=== PATIENT | female | born 1990 | race Caucasian/White ===

== ENCOUNTER 2019-12-11 12:50 | Observation (INO) | payer OTHER, SELFPAY ==
[2019-12-11 13:22] VITALS: BP 116/63; PULSE 75
[2019-12-11 13:35] VITALS: BMI 30.8
--- NOTE | 2019-12-11 13:35 | OBADM ---
This patient, Kenzie Wynne, admitted to OB Post room 116 for observation. Patient/family oriented to hospital policies and general routines including ID bracelet, bed and alarms, visiting hours, pain management, procedures, bathroom and other care routines, personal items, smoking policy, room service/diet, call light, and visiting hours. Patient/Family are encouraged to report perceived risks to care and to ask questions if they do not understand what they are told or what they should do.
[2019-12-11 13:58] LABS: Add Urine Microscopic? NO; Appearance Urine Clear (Clear); Bilirubin Urine Negative (Negative); Blood Urine Negative (Negative); Color Urine Yellow (Yellow); Glucose Urine UA Negative (Negative); Ketones Urine Negative (Negative); Leukocyte Esterase Ur Negative LEU/UL (Negative); Nitrate Urine Negative (Negative); Protein Urine Negative (Negative); Specific Grav Ur 1.015 (1.001-1.035); Urobilinogen Urine Negative mg/dL (<2.0)
--- NOTE | 2020-01-11 18:04 | PM.OBTRLD ---
OB - Triage/Final Diagnosis Evaluation Laboratory results: Laboratory Tests 12/11/19 13:45 Urine Color Yellow Urine Appearance Clear Urine pH 5.0 Ur Specific [place] 1.015 Urine Protein Negative Urine Glucose (UA) Negative Urine Ketones Negative Ur Blood (Man) Negative Urine Nitrate Negative Urine Bilirubin Negative Urine Urobilinogen Negative Leukocyte Esterase Rfl Negative Final Diagnosis (1) Spotting: Code(s): N92.0 - Excessive and frequent menstruation with regular cycle Status: Acute
== END 2019-12-11 15:35 | disposition home or self-care (01) ==
PROVIDERS: Admitting Provider Obstetrics & Gynecology; Visit Provider Obstetrics & Gynecology
DX: O26.852 Spotting complicating pregnancy, second trimester (principal); Z3A.21 21 weeks gestation of pregnancy
CPT/HCPCS: 81003; G0378; G0379

== ENCOUNTER 2020-03-14 21:48 | Observation (INO) | payer OTHER, SELFPAY ==
[2020-03-14 22:20] VITALS: BP 112/64; PULSE 101
[2020-03-14 22:30] VITALS: TEMP 36.9
[2020-03-14 23:28] LABS: Add Urine Microscopic? YES; Appearance Urine Cloudy (Clear); Bacteria Urine 1+ /hpf; Bilirubin Urine Negative (Negative); Blood Urine Negative (Negative); Color Urine Yellow (Yellow); Glucose Urine UA 1+ mg/dL (Negative); Ketones Urine Negative (Negative); Leukocyte Esterase Ur Negative LEU/UL (Negative); Mucus Urine Rare /lpf; Nitrate Urine Negative (Negative); Protein Urine Negative (Negative); Specific Grav Ur 1.012 (1.001-1.035); Squamous Epithelial Cell Urine Rare /hpf (Few); Urobilinogen Urine Negative mg/dL (<2.0); WBC Urine 0-3 /hpf
[2020-03-15] VITALS (11 sets, daily range): BP systolic 108; BP diastolic 57; PULSE 98–127; O2SAT 98–100; BMI 33.5
[2020-03-15] MEDS: TERBUTALINE SULFATE 1 MG/ML VIAL 0.25 MG SUB-Q
--- NOTE | 2020-03-15 01:01 | OBADM ---
This patient, Kenzie Wynne, admitted to the OB room Labor/Delivery/Recovery 106 for observation. Patient/family oriented to hospital policies and general routines including ID bracelet, bed and alarms, visiting hours, pain management, procedures, bathroom and other care routines, personal items, smoking policy, room service/diet, and visiting hours. Patient/Family are encouraged to report perceived risks to care and to ask questions if they do not understand what they are told or what they should do.
--- NOTE | 2020-03-16 15:03 | PM.OBTRLD ---
OB - Triage/Final Diagnosis Visit Information Date of evaluation: 03/15/20 Reason for evaluation: threatened labor Evaluation Laboratory results: Laboratory Tests 03/14/20 23:01 Urine Color Yellow Urine Appearance Cloudy H Urine pH 6.0 Ur Specific [place] 1.012 Urine Protein Negative Urine Glucose (UA) 1+ H Urine Ketones Negative Ur Blood (Man) Negative Urine Nitrate Negative Urine Bilirubin Negative Urine Urobilinogen Negative Leukocyte Esterase Rfl Negative Urine RBC 3-5 H Urine WBC 0-3 Ur Squamous Epith Cells Rare Urine Bacteria 1+ H Hyaline Casts 1-2 Urine Mucus Rare Final Diagnosis (1) Spotting: Code(s): N92.0 - Excessive and frequent menstruation with regular cycle Status: Acute
== END 2020-03-15 01:15 | disposition home or self-care (01) ==
PROVIDERS: Admitting Provider Obstetrics & Gynecology; PCP Internal Medicine; Visit Provider Student in an Organized Health Care Education/Training Program
DX: O26.853 Spotting complicating pregnancy, third trimester (principal); Z3A.34 34 weeks gestation of pregnancy
CPT/HCPCS: 81001; G0378; G0379; J3105

== ENCOUNTER 2020-03-18 17:37 | Observation (INO) | payer OTHER, SELFPAY ==
[2020-03-18] VITALS (15 sets, daily range): BP systolic 97–123; BP diastolic 55–71; PULSE 88–121; TEMP 37.4; BMI 33.5
[2020-03-18] MEDS: LACTATED RINGERS 1,000 ML 999 ML IV CONT (19:11)
[2020-03-18] MEDS: NIFEdipine 10 MG CAPSULE PO (19:12)
[2020-03-18] MEDS: BETAMETHASONE SOD PHOS/ACETATE 30 MG/5 ML VIAL 12 MG IM (20:56)
--- NOTE | 2020-03-28 07:02 | PM.OBTRLD ---
OB - Triage/Final Diagnosis Visit Information Date of evaluation: 03/18/20 Reason for evaluation: threatened labor
== END 2020-03-18 21:50 | disposition home or self-care (01) ==
PROVIDERS: Admitting Provider Student in an Organized Health Care Education/Training Program; PCP Internal Medicine; Visit Provider Student in an Organized Health Care Education/Training Program
DX: O47.03 False labor before 37 completed weeks of gestation, third trimester (principal); Z3A.35 35 weeks gestation of pregnancy
CPT/HCPCS: 96360; 96372; A9270; G0378; G0379; J0702; J7120

== ENCOUNTER 2020-03-19 20:35 | Outpatient (CLI) | payer OTHER, SELFPAY ==
[2020-03-19] MEDS: BETAMETHASONE SOD PHOS/ACETATE 30 MG/5 ML VIAL 12 MG IM (21:04)
== END 2020-03-19 21:10 | disposition home or self-care (01) ==
LOC: ANHOBOP 20:43
PROVIDERS: Family Provider Obstetrics & Gynecology; PCP Internal Medicine; Visit Provider Obstetrics & Gynecology
DX: O36.8990 Maternal care for other specified fetal problems, unspecified trimester, not applicable or unspecified (principal); Z3A.00 Weeks of gestation of pregnancy not specified
CPT/HCPCS: 96372; J0702

== ENCOUNTER 2020-04-17 18:52 | Inpatient (IN) | payer OTHER, SELFPAY ==
[2020-04-17] VITALS (10 sets, daily range): BP systolic 106–121; BP diastolic 60–82; PULSE 80–127; BMI 35.4
--- NOTE | 2020-04-17 19:22 | LDADM ---
This patient, Kenzie Wynne, was admitted to Labor/Delivery/Recovery 109 on 04/17/20 at 18:52. Plans for labor, pain management and were discussed with patient. Patient/family oriented to hospital policies and general routines including ID bracelet, bed and alarms, visiting hours, pain management, procedures, bathroom and other care routines, personal items, smoking policy, room service/diet and guest tray routines, security routines, and visiting hours. Patient/Family are encouraged to report perceived risks to care and to ask questions if they do not understand what they are told or what they should do. See OBIX for further documentation.
[2020-04-17 19:24] LABS: Basophils Percent Auto 0.3 % (0.2-1.2); Eosinophils Percent Auto 0.3 % (0-4.4); Hematocrit 36.1 % (37.0-47.0); Hemoglobin 12.4 g/dL (12.0-15.0); Lymphocytes Absolute Auto 1.72 K/mm3 (0.9-3.2); Lymphocytes Percent Auto 17.8 % (18.3-44.2); Mean Corpuscular HGB Conc 34.3 g/dl (32-36); Mean Platelet Volume 10.5 fl (7.4-10.4); Monocytes Absolute Auto 0.7 K/mm3 (0.1-0.6); Monocytes Percent Auto 7.2 % (2.6-8.5); Neutrophils Absolute Auto 7.1 K/mm3 (1.3-6.7); Neutrophils Percent Auto 73.4 % (45.5-73.1); Platelet Count Result 229 k/mm3 (150-375); Red Blood Count 3.88 M/mm3 (4.2-5.4); White Blood Count 9.7 K/mm3 (4.5-10.0)
[2020-04-17] MEDS: DINOPROSTONE 10 MG VAG INSERT VAGINAL (19:31)
[2020-04-17] MEDS: ZOLPIDEM TARTRATE 5 MG TABLET PO (23:35)
[2020-04-18] VITALS (206 sets, daily range): BP systolic 97–138; BP diastolic 49–92; PULSE 72–128; TEMP 37–38.4; O2SAT 79–100
--- NOTE | 2020-04-18 02:30 | P.PNAN_ITS ---
Anes - Eval Pre Procedure Procedure: labor epidural Date/Time: 04/18/20 02:30 Surgeon: filomena tenorio Pre Op Diagnosis: Induction of Labor Patient Data Age: 30 Gender: F Height: 1.57 m Weight: 88 kg Last Vital Signs Temp 37.2 C 04/18/20 02:08 Pulse 74 04/18/20 02:08 BP 109/61 04/18/20 02:08 Allergies Allergy/AdvReac Type Severity Reaction Status Date / Time amoxicillin Allergy Mild Verified 01/14/19 08:58 Penicillins Allergy Unknown Verified 06/16/14 14:16 Home Medications Medication Instructions Recorded Confirmed Type PNV cmb#95-ferrous fumarate-FA 1 tablet PO DAILY 03/15/20 03/30/20 History [] omeprazole 40 mg PO DAILY 03/30/20 03/30/20 History Laboratory Tests 04/17/20 04/17/20 04/17/20 19:17 19:17 19:17 WBC 9.7 K/mm3 K/mm3 (4.5-10.0) RBC 3.88 M/mm3 L M/mm3 (4.2-5.4) Hgb 12.4 g/dL g/dL (12.0-15.0) Hct 36.1 % L % (37.0-47.0) MCV 93.0 fl fl (80-100) MCH 32.0 pg pg (26-34) MCHC 34.3 g/dl g/dl (32-36) RDW 13.0 % % (11.5-14.5) Plt Count 229 k/mm3 k/mm3 (150-375) MPV 10.5 fl H fl (7.4-10.4) Immature Gran % (Auto) 1.0 % H % (0-0.5) Neut % (Auto) 73.4 % H % (45.5-73.1) Lymph % (Auto) 17.8 % L % (18.3-44.2) [place] % (Auto) 7.2 % % (2.6-8.5) Eos % (Auto) 0.3 % % (0-4.4) Baso % (Auto) 0.3 % % (0.2-1.2) Lymph # (Auto) 1.72 K/mm3 K/mm3 (0.9-3.2) [place] # (Auto) 0.7 K/mm3 H K/mm3 (0.1-0.6) Eos # (Auto) 0.0 K/mm3 K/mm3 (0-0.3) Baso # (Auto) 0.0 K/mm3 K/mm3 (0.0-0.1) Abs Immat Gran (auto) 0.10 K/mm3 H K/mm3 (0.00-0.031) Absolute Neuts (auto) 7.1 K/mm3 H K/mm3 (1.3-6.7) Absolute Nucleated RBC 0.0 K/mm3 K/mm3 (0.0-0.012) Nucleated RBC % 0.0 % % (0.0-0.2) RPR Pending Blood Type A Negative Antibody Screen Negative Patient hx anesthesia problems: post op nausea/vomiting Family hx anesthesia problems: none PMFSH Social History Social History Smoking status: Never smoker Alcohol intake: current Substance use: never Gender identity (if verbalized by the patient): Female Spiritual care concerns: No Exam Day of Procedure 04/18/20 02:30
--- NOTE | 2020-04-18 06:17 | PM.IMHP ---
H&P: HPI History of Present Illness Chief complaint: Induction of Labor Narrative: Kenzie Wynne is a 30 year old female whose last menstrual reason EDC is 04/21/2020, confirmed by 5 week ultrasound presenting at 40 weeks gestation for induction labor. She has had mildly elevated blood pressures. She is negative for group B strep. has been uncomplicated thus far. Review of Systems Review of Systems: All systems reviewed & are unremarkable except as noted in HPI and below PMFSH Family History Family History Mother Patient's mother is in good health Father Patient's father is in good health Sibling Patient's sister is in good health Patient's brother is in good health Grandparent Carcinoma of colon Family history of lung cancer Social History Social History Smoking status: Never smoker Alcohol intake: current Substance use: never Gender identity (if verbalized by the patient): Female Spiritual care concerns: No Meds Home Medications and Allergies Home Medications Medication Instructions Recorded Confirmed Type PNV cmb#95-ferrous fumarate-FA 1 tablet PO DAILY 03/15/20 03/30/20 History [] omeprazole 40 mg PO DAILY 03/30/20 03/30/20 History Allergies Allergy/AdvReac Type Severity Reaction Status Date / Time amoxicillin Allergy Mild Verified 01/14/19 08:58 Penicillins Allergy Unknown Verified 06/16/14 14:16 Vital Signs Vital Signs - 24 hr 04/17/20 19:21 04/17/20 19:30 04/17/20 19:45 Temperature Pulse Rate 88 127 H 85 Blood Pressure 107/60 111/82 106/65 04/17/20 20:00 04/17/20 20:15 04/17/20 20:30 Temperature Pulse Rate 91 81 80 Blood Pressure 119/72 112/68 121/72 04/17/20 20:45 04/17/20 21:00 04/17/20 21:15 Temperature Pulse Rate 80 86 93 Blood Pressure 111/67 121/69 109/67 04/17/20 21:30 04/18/20 02:08 04/18/20 06:16 Temperature 98.9 F 98.8 F Pulse Rate 94 74 Blood Pressure 106/60 109/61 Exam Const: General: no acute distress Eyes: General: appearance normal, both eyes and all related structures Neck: Neck: supple and no JVD Thyroid: thyroid normal Resp: Effort & Inspection: normal respiratory effort Auscultation: clear to auscultation bilaterally Cardio: Rate: regular rate Rhythm: regular rhythm GI: Inspection: normal to inspection ( Gravid soft uterus) and non-distended GI Palp: Yes Soft to palpation, No Tenderness to palpation present (GI) and No Guarding due to palpation present (GI) Auscultation: normal bowel sounds : General: Yes bladder normal to palpation External Female Exam: normal external appearance Speculum Exam - Vagina: normal vaginal discharge and No vaginal bleeding Speculum Exam - Cervix: nontender Bimanual exam- vagina & uterus: bladder normal to palpation OB/external & speculum: Cervical os open ( cervix 1/50%/ -2. AROM clear. FHTs were reassuring); No vaginal bleeding Skin: General skin exam: no rashes or lesions noted Extrem: General: normal to inspection and no edema Psych: Mental Status: mental status grossly normal Affect: normal affect H&P: Results Labs Labs: Short CBC 04/17/20 Range/Units 19:17 WBC 9.7 (4.5-10.0) K/mm3 Hgb 12.4 (12.0-15.0) g/dL Hct 36.1 L (37.0-47.0) % Plt Count 229 (150-375) k/mm3 Assessment and Plan Additional Plan impression: Term with mildly elevated blood pressures Plan: Medical induction of labor. Spontaneous vaginal delivery is expected. She has an epidural candidate
[2020-04-18 07:25] LABS: Rapid Plasma Reagin Non-Reactive (NonReactive)
[2020-04-18] MEDS: LACTATED RINGERS 1,000 ML 125 ML IV CONT ×4 (09:05→23:06)
[2020-04-18] MEDS: OXYTOCIN 30 UNITS/NS 500 ML 30 UNITS/500 ML BAG 6 UNITS IV CONT (09:06)
--- NOTE | 2020-04-18 11:50 | PM.OBPNVD ---
OB - PN: Subj Subjective Date/time seen: 04/18/20 11:50 Interval history: cx unchanged arom clear fhts ok iupc placed OB - PN: Obj Data Labs CBC & Chem 7: 04/17/20 19:17 Labs: Laboratory Results - last 24 hr 04/17/20 04/17/20 04/17/20 19:17 19:17 19:17 WBC 9.7 RBC 3.88 L Hgb 12.4 Hct 36.1 L MCV 93.0 MCH 32.0 MCHC 34.3 RDW 13.0 Plt Count 229 MPV 10.5 H Immature Gran % (Auto) 1.0 H Neut % (Auto) 73.4 H Lymph % (Auto) 17.8 L [place] % (Auto) 7.2 Eos % (Auto) 0.3 Baso % (Auto) 0.3 Lymph # (Auto) 1.72 [place] # (Auto) 0.7 H Eos # (Auto) 0.0 Baso # (Auto) 0.0 Abs Immat Gran (auto) 0.10 H Absolute Neuts (auto) 7.1 H Absolute Nucleated RBC 0.0 Nucleated RBC % 0.0 RPR Non-reactive Blood Type A Negative Antibody Screen Negative OB - PN A/P Time Spent With Patient Time: Total time spent is greater than 50% in coordination of care (as documented) at patient's floor/unit and/or counseling patient:
[2020-04-18] MEDS: ACETAMINOPHEN 500 MG TABLET 1000 MG PO ×2 (16:30→23:15)
--- NOTE | 2020-04-18 16:32 | P.PNOB_ITS ---
OB - PN: Subj Subjective Date/time seen: 04/18/20 16:32 Interval history: cx fhts ok iupc replaced epidural in OB - PN: Obj Data Labs CBC & Chem 7: 04/17/20 19:17 Labs: Laboratory Results - last 24 hr 04/17/20 04/17/20 04/17/20 19:17 19:17 19:17 WBC 9.7 RBC 3.88 L Hgb 12.4 Hct 36.1 L MCV 93.0 MCH 32.0 MCHC 34.3 RDW 13.0 Plt Count 229 MPV 10.5 H Immature Gran % (Auto) 1.0 H Neut % (Auto) 73.4 H Lymph % (Auto) 17.8 L [place] % (Auto) 7.2 Eos % (Auto) 0.3 Baso % (Auto) 0.3 Lymph # (Auto) 1.72 [place] # (Auto) 0.7 H Eos # (Auto) 0.0 Baso # (Auto) 0.0 Abs Immat Gran (auto) 0.10 H Absolute Neuts (auto) 7.1 H Absolute Nucleated RBC 0.0 Nucleated RBC % 0.0 RPR Non-reactive Blood Type A Negative Antibody Screen Negative OB - PN A/P Time Spent With Patient Time: Total time spent is greater than 50% in coordination of care (as documented) at patient's floor/unit and/or counseling patient:
[2020-04-18] MEDS: ONDANSETRON INJ 4 MG/2 ML VIAL IV PUSH (17:13)
[2020-04-18] MEDS: CALCIUM CARBONATE (TUMS) 500 MG (200 MG ELEMENTAL) 400 MG PO (21:14)
[2020-04-19] VITALS (62 sets, daily range): BP systolic 64–132; BP diastolic 35–81; PULSE 89–168; RESP 16; TEMP 36.6–38.4; O2SAT 94–100
--- NOTE | 2020-04-19 03:25 | P.PCNOB_ITS ---
OB - Delivery Note Procedure Delivery date: 04/19/20 Intrapartal events: None Induction method: AROM Delivery augmentation: pitocin Delivery monitor: external FHT Route of delivery: Episiotomy description: None Laceration description: None Specimen: No Estimated blood loss (mL): 457 Anesthesia type: Epidural Disposition: floor [place] Baby Date of : 04/19/20 Time of : 03:08 Weeks of gestation at delivery: 39 gender: Female Weight (pounds): 8 Weight (ounces): 9 presentation: vertex position: Right Occiput Anterior cord vessel description: 3 Vessels score one minute: 8 score five minutes: 9
[2020-04-19] MEDS: OXYTOCIN 30 UNITS/NS 500 ML 30 UNITS/500 ML BAG 125 UNITS IV CONT (03:35)
[2020-04-19] MEDS: IBUPROFEN 600 MG TABLET PO ×3 (04:12→19:26)
[2020-04-19] MEDS: BENZOCAINE 20% AER SPR (*SP) 56 GM CAN 1 SPRAY TOPICAL (04:13)
[2020-04-19] MEDS: WITCH HAZEL 40 PADS 1 PAD TOPICAL (04:13)
[2020-04-19] MEDS: LACTATED RINGERS 1,000 ML 125 ML IV CONT (04:32)
[2020-04-19 07:09] LABS: Hematocrit 26.7 % (37.0-47.0); Hemoglobin 9.1 g/dL (12.0-15.0)
[2020-04-19] MEDS: POLYSACCHARIDE IRON COMPLEX 150 MG CAPSULE PO ×2 (07:28→16:31)
[2020-04-19] MEDS: MULTIVIT/MIN/PREN/FOL AC/IRON TABLET 1 TAB PO (07:28)
[2020-04-19] MEDS: DOCUSATE SODIUM 100 MG CAPSULE PO ×2 (07:29→16:31)
[2020-04-19] MEDS: ACETAMINOPHEN 325 MG TABLET 650 MG PO ×3 (07:29→22:05)
[2020-04-19] MEDS: LANOLIN (LANSINOH) 7.5 GM CREAM 1 APPLIC TOPICAL (07:31)
--- NOTE | 2020-04-19 07:40 | OBPPTRN ---
Patient transferred to post room # 277 per wheelchair. Support person present. Oriented to unit, room, information board, rooming in, admission packet and security measures. Patient verbalizes understanding.
--- NOTE | 2020-04-19 08:45 | PC.NURSE ---
Mother called out for assist with feeding. Mother reports infant eagerly fed for first feeding, now sleepy. Reviewed infant feeding cues, frequencies, duration of feedings, feeding elimination flow sheet, and signs of adequate intake. Demonstrated stimulation techniques to wake for feeding. Assisted with infant to breast. Reviewed positioning/alignment in cross cradle, holding breast in U hold and guided asymmetrical latch on. Discussed rational for each. Several attempts before infant was able to latch correctly. Left breast is more firm and nipple does not protrude as far as right. Infant nursed eagerly, with steady draws and occasional swallowing noted. Reviewed signs of a correct latch, effective nursing and suck swallow ratio. Mother continued to have slight tenderness. Demonstrated how to adjust latch more deeply while feeding. Within 1-2 minutes, had drawn nipple in deeply and mother reports no discomfort. Infant was able to maintain latch without discomfort to mother. Nipple care reviewed. Discussed nipple shield use if infant continues to have issues with latch to left breast. Instructed mother to call out for RN assistance if she is unable to latch for feeding or she has discomfort with nursing. Instructed feeding should be initiated three hours from start of last feeding or if feeding cues are noted before. Mother voiced understanding of information shared.
[2020-04-20] VITALS (12 sets, daily range): BP systolic 105–120; BP diastolic 54–75; PULSE 78–101; RESP 14–18; TEMP 36.5–37.1; O2SAT 97–100
[2020-04-20 05:47] LABS: Hematocrit 19.9 % (37.0-47.0); Hemoglobin 6.7 g/dL (12.0-15.0)
--- NOTE | 2020-04-20 06:17 | P.PNOB_ITS ---
OB - PN: Subj Subjective Date/time seen: 04/20/20 06:17 Interval history: cx fhts ok iupc replaced epidural in Patient comments: no complaints and pain well controlled [place] baby status: doing well and nursing well OB - PN: Obj Data Labs CBC & Chem 7: 04/20/20 05:35 Labs: Laboratory Results - last 24 hr 04/19/20 04/20/20 06:55 05:35 Hgb 9.1 L D 6.7 L* Hct 26.7 L 19.9 L* OB - PN A/P Plan day: 1 Plan: routine care Comments: start iron Time Spent With Patient Time: Total time spent is greater than 50% in coordination of care (as documented) at patient's floor/unit and/or counseling patient: Time with patient: less than 15 minutes Review of Systems Review of Systems: All systems reviewed & are unremarkable except as noted in HPI and below Exam Const: General: no acute distress Eyes: General: appearance normal, both eyes and all related structures Neck: Neck: supple and no JVD Thyroid: thyroid normal Resp: Effort & Inspection: normal respiratory effort Auscultation: clear to auscultation bilaterally Cardio: Rate: regular rate Rhythm: regular rhythm GI: Inspection: non-distended GI Palp: Yes Soft to palpation, No Tenderness to palpation present (GI) and No Guarding due to palpation present (GI) Auscultation: normal bowel sounds : General: Yes bladder normal to palpation External Female Exam: normal external appearance Speculum Exam - Vagina: normal vaginal discharge and No vaginal bleeding Speculum Exam - Cervix: nontender Bimanual exam- vagina & uterus: bladder normal to palpation and No Cervical tenderness present OB/external & speculum: No vaginal bleeding Skin: General skin exam: no rashes or lesions noted Extrem: General: normal to inspection and no edema Psych: Mental Status: mental status grossly normal Affect: normal affect
--- NOTE | 2020-04-20 07:19 | WPDANLDPN2 ---
Anes-Prog Note L&D Date/Time: 04/20/20 07:19 Comfortable throughout: labor and delivery Neuraxial method: epidural Epidural/Spinal procedure site: clean & non-tender Neuro status: Neuro function grossly intact. Cardiovascular status: normal Respiratory status: normal Airway patency: baseline Mental status: baseline Post-Op hydration status: normal Vital Signs: Last Vital Signs Temp 36.7 C 04/19/20 19:15 Pulse 108 H 04/19/20 19:15 Resp 16 04/19/20 19:15 BP 115/63 04/19/20 19:15 Pulse Ox 99 04/19/20 19:15 Post-procedural complaints: none Patient feedback: Patient satisfied with anesthetic care.
[2020-04-20] MEDS: BENZOCAINE 20% AER SPR (*SP) 56 GM CAN 1 SPRAY TOPICAL (08:20)
[2020-04-20] MEDS: WITCH HAZEL 40 PADS 1 PAD TOPICAL (08:20)
[2020-04-20] MEDS: IBUPROFEN 600 MG TABLET PO ×3 (08:21→20:13)
[2020-04-20] MEDS: DOCUSATE SODIUM 100 MG CAPSULE PO ×2 (08:22→16:15)
[2020-04-20] MEDS: ACETAMINOPHEN 325 MG TABLET 650 MG PO ×2 (08:22→16:16)
[2020-04-20] MEDS: POLYSACCHARIDE IRON COMPLEX 150 MG CAPSULE PO ×2 (08:22→16:15)
[2020-04-20] MEDS: MULTIVIT/MIN/PREN/FOL AC/IRON TABLET 1 TAB PO (08:22)
--- NOTE | 2020-04-20 13:00 | PC.NURSE ---
Mother called out for assist with feeding due to difficulties with latch and pain with feeding. Mother reports infant frenulum had been released last evening. She continues to pain with latch and during entire feeding, reporting nipples are sore and feel like they are burning Assisted with infant to breast. Reviewed positioning/alignment in cross cradle, holding breast in U hold and guided asymmetrical latch on. Discussed rational for each. Several attempts before was able to latch correctly. Mother reports less discomfort than previous latch, reporting this is tolerable. Mother would like to imitate pumping and supplementation. nursed eagerly with steady draws and occasional swallowing for short bursts followed with pausing and sleeping. Reviewed signs of a correct latch, effective nursing and suck swallow ratio would slip to shallow latch with pausing. Demonstrated how to adjust latch more deeply while feeding. Nipple care reviewed. Feeding plan is to put infant to breast each feeding for 15 minutes if she is able to obtain a deep latch, followed with supplementation and will then pump.
--- NOTE | 2020-04-20 13:30 | PC.NURSE ---
Breast pump provided due to mother's wishes. Instructions given on breast pump care and usage, pumping schedule, nipple care, and collection and storage of breast milk. Encouraged [id number], breast massage and manual expression to stimulate supply. Assessed patient for correct flange size, placement and draw. Patient verbalizes and demonstrates understanding of instructions.
[2020-04-21] MEDS: IBUPROFEN 600 MG TABLET PO ×2 (02:30→11:51)
--- NOTE | 2020-04-21 03:45 | PC.NURSE ---
04/21/20 0000. unable to chart in [facility]. unit verified by myself and Thu Mackenzie RN prior to transfusion. IV of Normal Saline infusing well in right ac. 0000 120/74 P-96 O2 100 R-16 T 98.0 Start transfusion 0015 116/72 P-98 O2 100 R-16 0030 112/70 P-95 O2 99% R-16 0100 117/77 P- 97 O2 100% R-18 T-98.4 0115 114/63 P- 91 O2 99% R-16 T-98.6 0130 116/66 P-97 O2 99% R-18 0200 100/62 P-74 0230 118/78 P-92 O2 99% R-18 T 98.3 0300 103/59 P-91 O2 98% R18 0315 112/69 P-91 O2 99% R 18 T 98.4 End transfusion.
--- NOTE | 2020-04-21 06:57 | PM.OBPNVD ---
OB - PN: Subj Subjective Date/time seen: 04/21/20 06:57 Interval history: cx fhts ok iupc replaced epidural in Patient comments: no complaints and pain well controlled [place] baby status: doing well and nursing well OB - PN: Obj Data Labs CBC & Chem 7: 04/20/20 05:35 Labs: Laboratory Results - last 24 hr 04/17/20 04/17/20 18:54 19:17 Blood Type A Negative A Negative Antibody Screen Negative Negative Crossmatch See Detail See Detail OB - PN A/P Plan day: 2 Plan: routine care, discharge home and follow up 6 weeks Time Spent With Patient Time: Total time spent is greater than 50% in coordination of care (as documented) at patient's floor/unit and/or counseling patient: Time with patient: less than 15 minutes Review of Systems Review of Systems: All systems reviewed & are unremarkable except as noted in HPI and below Exam Const: General: no acute distress Eyes: General: appearance normal, both eyes and all related structures Neck: Neck: supple and no JVD Thyroid: thyroid normal Resp: Effort & Inspection: normal respiratory effort Auscultation: clear to auscultation bilaterally Cardio: Rate: regular rate Rhythm: regular rhythm GI: Inspection: non-distended GI Palp: Yes Soft to palpation, No Tenderness to palpation present (GI) and No Guarding due to palpation present (GI) Auscultation: normal bowel sounds : General: Yes bladder normal to palpation External Female Exam: normal external appearance Speculum Exam - Vagina: normal vaginal discharge and No vaginal bleeding Speculum Exam - Cervix: nontender Bimanual exam- vagina & uterus: bladder normal to palpation and No Cervical tenderness present OB/external & speculum: No vaginal bleeding Skin: General skin exam: no rashes or lesions noted Extrem: General: normal to inspection and no edema Psych: Mental Status: mental status grossly normal Affect: normal affect
--- NOTE | 2020-04-21 06:58 | PM.DS ---
DS: Admitting Diagnosis Admitting Diagnosis Admitting Diagnosis: term iup DS: Summary Time Spent with Patient Time attestation: Total time spent providing and/or coordinating discharge services: Exam Const: General: no acute distress Eyes: General: appearance normal, both eyes and all related structures Neck: Neck: supple and no JVD Thyroid: thyroid normal Resp: Effort & Inspection: normal respiratory effort Auscultation: clear to auscultation bilaterally Cardio: Rate: regular rate Rhythm: regular rhythm GI: Inspection: non-distended GI Palp: Yes Soft to palpation, No Tenderness to palpation present (GI) and No Guarding due to palpation present (GI) Auscultation: normal bowel sounds : General: Yes bladder normal to palpation External Female Exam: normal external appearance Speculum Exam - Vagina: normal vaginal discharge and No vaginal bleeding Speculum Exam - Cervix: nontender Bimanual exam- vagina & uterus: bladder normal to palpation and No Cervical tenderness present OB/external & speculum: No vaginal bleeding Skin: General skin exam: no rashes or lesions noted Extrem: General: normal to inspection and no edema Psych: Mental Status: mental status grossly normal Affect: normal affect DS: Data Data Completed and Pending Labs on day of discharge: Labs from last 24 hours 04/17/20 04/17/20 19:17 18:54 Blood Type A Negative A Negative Antibody Screen Negative Negative Crossmatch See Detail See Detail Discharge Plan Discharge Attending physician on discharge: Ramon Schuler Discharging Clinician: Ramon Schuler Patient Disposition: Home, Self-Care Activity: may shower, no straining, may drive after 2 weeks and pelvic rest Diet: heart healthy Wound Care Instructions: follow printed instructions Patient Instructions: Antibiotic Form Stand Alone Forms: General Discharge Information Follow-up/Referrals: Ramon Schuler MD [Physician] - Discharge Medications: Continued PNV cmb#95-ferrous fumarate-FA [] 28 mg iron- 800 mcg Tablet 1 tablet PO DAILY RF: 0 omeprazole 40 mg Capsule,Delayed Release(Dr/Ec) 40 mg PO DAILY RF: 0 Date of admission: 04/17/20 18:52 Primary Care Provider: Sourav Mujica Admitting Provider: Ramon Schuler Attending physician on admission: Ramon Schuler
[2020-04-21] MEDS: MULTIVIT/MIN/PREN/FOL AC/IRON TABLET 1 TAB PO (07:29)
[2020-04-21] MEDS: BENZOCAINE 20% AER SPR (*SP) 56 GM CAN 1 SPRAY TOPICAL ×2 (07:29→11:49)
[2020-04-21] MEDS: WITCH HAZEL 40 PADS 1 PAD TOPICAL ×2 (07:29→11:49)
[2020-04-21] MEDS: DOCUSATE SODIUM 100 MG CAPSULE PO (07:29)
[2020-04-21] MEDS: POLYSACCHARIDE IRON COMPLEX 150 MG CAPSULE PO (07:29)
[2020-04-21 08:00] VITALS: BP 119/56; PULSE 81; RESP 18; TEMP 36.7
--- NOTE | 2020-04-21 09:00 | PC.NURSE ---
Patient viewed the discharge video Mother & Baby Care, The First Two Weeks . Patient was given the opportunity and encouraged to ask questions. Patient verbalized understanding of information shared and has been given the mother/baby guide for home reference.
[2020-04-21 09:11] LABS: Hematocrit 26.8 % (37.0-47.0); Hemoglobin 9.2 g/dL (12.0-15.0)
--- NOTE | 2020-04-21 12:45 | PC.NURSE ---
Self care and infant care discharge instructions given to pt. including follow up visit date and time. Pt. verbalized understanding. No questions or concerns verbalized. Very pleasant and cooperative. at side.
[2020-04-22 08:37] VITALS: BP 116/65; PULSE 73; RESP 20; TEMP 36.2
== END 2020-04-21 13:50 | disposition home or self-care (01) | DRG 806 ==
LOC: ANHLDR 04-18 15:01 → ANHOB2 04-19 06:59
PROVIDERS: Student in an Organized Health Care Education/Training Program; Admitting Provider Obstetrics & Gynecology; PCP Internal Medicine; Visit Provider Obstetrics & Gynecology
DX: O99.89 Other specified diseases and conditions complicating pregnancy, childbirth and the puerperium (principal); O75.2 Pyrexia during labor, not elsewhere classified; Z37.0 Single live birth; Z3A.39 39 weeks gestation of pregnancy; R03.0 Elevated blood-pressure reading, without diagnosis of hypertension; O70.0 First degree perineal laceration during delivery
CPT/HCPCS: 36415; 36430; 85014; 85018; 85025; 86592; 86850; 86900; 86901; 86920; 86923; A9270; J0690; J2405; J2590; J2795; J7030; J7120; P9016

== ENCOUNTER 2020-04-28 03:16 | Day surgery (SDC) | payer OTHER, SELFPAY ==
--- NOTE | 2020-04-27 14:10 | PM.IMHP ---
H&P: HPI History of Present Illness Chief complaint: Post Bleeding Narrative: Kenzie Wynne is a 30 year old female 1 para 1 had recent delivery complaining of vaginal bleeding. Ultrasound shows clots possible placental tissue. Risks and benefits of dilatation curettage reviewed in detail. She had all questions answered and asked to proceed Review of Systems Review of Systems: All systems reviewed & are unremarkable except as noted in HPI and below PMFSH Family History Family History Mother Patient's mother is in good health Father Patient's father is in good health Sibling Patient's sister is in good health Patient's brother is in good health Grandparent Carcinoma of colon Family history of lung cancer Social History Social History Smoking status: Never smoker Alcohol intake: current Substance use: never Gender identity (if verbalized by the patient): Female Spiritual care concerns: No Meds Home Medications and Allergies Home Medications Medication Instructions Recorded Confirmed Type PNV cmb#95-ferrous fumarate-FA 1 tablet PO DAILY 03/15/20 03/30/20 History [] omeprazole 40 mg PO DAILY 03/30/20 03/30/20 History Allergies Allergy/AdvReac Type Severity Reaction Status Date / Time amoxicillin Allergy Mild Hives Verified 04/27/20 14:14 Penicillins Allergy Unknown Hives Verified 04/27/20 14:14 Exam Const: General: no acute distress Eyes: General: appearance normal, both eyes and all related structures Neck: Neck: supple and no JVD Thyroid: thyroid normal Resp: Effort & Inspection: normal respiratory effort Auscultation: clear to auscultation bilaterally Cardio: Rate: regular rate Rhythm: regular rhythm GI: Inspection: non-distended GI Palp: Yes Soft to palpation, No Tenderness to palpation present (GI) and No Guarding due to palpation present (GI) Auscultation: normal bowel sounds : General: Yes bladder normal to palpation External Female Exam: normal appearance of the urethra Speculum Exam - Vagina: normal appearance of the vagina and vaginal bleeding Speculum Exam - Cervix: Cervical os open Bimanual exam- vagina & uterus: boggy Skin: General skin exam: no rashes or lesions noted Extrem: General: normal to inspection and no edema Psych: Mental Status: mental status grossly normal Affect: normal affect Assessment and Plan Additional Plan impression: bleeding Plan: Suction dilatation and curettage
[2020-04-27 14:13] VITALS: BMI 30.2
--- NOTE | 2020-04-28 06:20 | WPDHPUPDATE1 ---
History and Physical Update Update Date/Time: 04/28/20 06:20 History and Physical has been reviewed, including an updated exam of the patient. There are NO changes in the patient's condition. Risks, benefits, and alternatives have been discussed and questions answered. Patient agrees to proceed with procedure.
[2020-04-28] MEDS: LACTATED RINGERS 1,000 ML 30 ML IV CONT (12:29)
[2020-04-28 12:35] LABS: Hematocrit 35.5 % (37.0-47.0); Hemoglobin 11.9 g/dL (12.0-15.0)
[2020-04-28 12:41] VITALS: BP 116/68; PULSE 63; RESP 16; TEMP 36.6; O2SAT 100
--- NOTE | 2020-04-28 12:51 | WPDANESEPPF ---
Anes - Initial Pre Proc Eval Procedure: Operation Date: 04/28/20 14:00 Proposed Procedures p Suction Dilation And Curettage - Ramon Schuler MD Date/Time: 04/28/20 12:51 Surgeon: Ramon Schuler MD Pre Op Diagnosis: Post Bleeding Patient Data Age: 30 Gender: F Height: 5 ft 2 in Weight: 73.2 kg Last Vital Signs Temp 36.6 C 04/28/20 12:41 Pulse 63 04/28/20 12:41 Resp 16 04/28/20 12:41 BP 116/68 04/28/20 12:41 Pulse Ox 100 04/28/20 12:41 Allergies Allergy/AdvReac Type Severity Reaction Status Date / Time amoxicillin Allergy Mild Hives Verified 04/28/20 12:04 Penicillins Allergy Unknown Hives Verified 04/28/20 12:04 Home Medications Medication Instructions Recorded Confirmed Type PNV cmb#95-ferrous fumarate-FA 1 tablet PO DAILY 03/15/20 04/28/20 History [] ibuprofen 600 mg PO Q6H PRN 04/27/20 04/28/20 History hydrocodone-acetaminophen [Lorraine] 1 tablet PO Q4H PRN #20 tablet 04/28/20 Rx Laboratory Tests 04/28/20 12:28 Hgb 11.9 g/dL L g/dL (12.0-15.0) Hct 35.5 % L % (37.0-47.0) Patient hx anesthesia problems: post op nausea/vomiting Family hx anesthesia problems: none PMFSH Family History Family History Mother Patient's mother is in good health Father Patient's father is in good health Sibling Patient's sister is in good health Patient's brother is in good health Grandparent Carcinoma of colon Family history of lung cancer Social History Social History Smoking status: Never smoker Alcohol intake: current Drinks per week: 5 Substance use: never Gender identity (if verbalized by the patient): Female Spiritual care concerns: No Anes - Eval Final PreProcedure Day of Procedure 04/28/20 12:51 Patient weight: overweight Heart: regular rate and rhythm Lungs: clear to auscultation Airway: Mallampati scale class II Neurological: alert and oriented Last oral intake: >/= 8 hours ASA classification: II Emergent: no Anesthetic plan: proceed Anesthesia type and monitoring: general GIVS and standard monitoring Informed Consent: The patient's anesthetic plan and its attendant risks and benefits were discussed with the patient/family/POA. Questions were solicited and answers provided to the satisfaction of the patient/family/POA.
[2020-04-28] MEDS: KETOROLAC 30 MG/ML VIAL (*BKC) IV PUSH (13:16)
[2020-04-28] MEDS: METHYLERGONOVINE MALEATE 0.2 MG/ML VIAL IM (13:16)
--- NOTE | 2020-04-28 13:17 | PM.PROC ---
Procedure Note - Detailed Date of procedure: 04/28/20 Pre-op diagnosis: Post Bleeding Surgeon: Ramon Schuler MD postop diagnosis: bleeding Procedure: Suction dilatation curettage Anesthesia: IV sedation and local EBL: 25cc Findings: Uterus sounded to 12cm. Thick irregular endometrial tissue. Locations description of procedure: Patient was prepped draped in the sterile fashion placed in dorsal lithotomy position. Under excellent IV sedation weighted speculum placed in posterior fornix vagina. Anterior lip of the cervix grasped with a ring forceps. Uterus sounded to 12cm. Serial dilatation fragmented dilators performed to size 12. The 10. Suction curette was passed in a moderate amount of clot and possible placental tissue was removed. When a good grating sound was heard the returned the procedure was terminated. All sponge, needle, instrument counts were correct. There were no immediate complications.
[2020-04-28 13:21] VITALS: BP 114/71; PULSE 68; RESP 21; O2SAT 100
[2020-04-28 13:50] VITALS: BP 108/67; PULSE 49; RESP 16
[2020-04-28 14:20] VITALS: BP 110/62; PULSE 49; RESP 16
--- NOTE | 2020-04-28 16:24 | SUR.PHASEII ---
1415 - pt getting dressed. golf ball size clot noted on melody-pad. dr. clemens called and aware of clot and bleeding. pt okayed to send home.
== END 2020-04-28 14:30 | disposition home or self-care (01) ==
PROVIDERS: PCP Internal Medicine; Visit Provider Obstetrics & Gynecology
PROC: (CPT 59160; principal; 2020-04-28 14:00)
DX: O72.2 Delayed and secondary postpartum hemorrhage (principal)
CPT/HCPCS: 59160; 36415; 85014; 85018; 88305; A9270; J1885; J2210; J2250; J2704; J3010; J7120

== ENCOUNTER 2020-06-08 10:20 | Outpatient (CLI) | payer OTHER, SELFPAY ==
[2020-06-08 11:02] LABS: Hematocrit 39.4 % (37.0-47.0); Hemoglobin 12.9 g/dL (12.0-15.0)
== END 2020-06-08 10:21 | disposition home or self-care (01) ==
PROVIDERS: PCP Internal Medicine; Visit Provider Obstetrics & Gynecology
DX: N93.9 Abnormal uterine and vaginal bleeding, unspecified (principal)
CPT/HCPCS: 36415; 85014; 85018

== ENCOUNTER 2020-07-30 18:59 | Emergency (ER) | payer OTHER, SELFPAY ==
--- NOTE | ~2020-07-30 | XR_ITS ---
XR chest 2V DATE: 07/30/2020 19:30 INDICATION: Middle and left-sided chest pain for weeks. Shortness of breath. TECHNIQUE: PA and lateral views COMPARISON: 06/23/2019 PA chest FINDINGS: Normal heart size. No hilar or mediastinal enlargement. No pulmonary infiltrate or consolid ation, pleural effusion or pulmonary vascular congestion or pneumothorax. Included skeletal structure s are unremarkable. IMPRESSION: No active cardiopulmonary disease Reviewed, dictated and finalized at location A.
--- NOTE | ~2020-07-30 | CT_ITS ---
EXAMINATION: CTA chest PE protocol DATE: 07/30/2020 21:25 INDICATION: Left-sided chest pain. Elevated d-dimer. TECHNIQUE: Computed tomography angiography (CTA) of the chest was performed with 100 mL Omnipaque-350 intravenous contrast timed to evaluate the pulmonary arteries. Coronal maximum intensity projection 3D-reconstructions were created by the technologist. Automated exposure control and iterative reconst ruction technique were employed. Exam dose: 310.59 mGy-cm total exam DLP. COMPARISON: 07/30/2022 view chest FINDINGS: There is diagnostic contrast enhancement of the pulmonary syndrome evidence of pulmonary em bolism. No thoracic aortic aneurysm or dissection. No hilar or mediastinal mass lesion or lymphadenopathy. Normal heart size. No pericardial or pleural effusion. No pulmonary infiltrate or consolidation or pulmonary mass lesion. The adrenal glands are of normal morphology. Included upper abdominal structures are unremarkable. Included skeletal structures are unremarkable. IMPRESSION: Normal examination; no evidence of pulmonary embolism Reviewed, dictated and finalized at Location [facility]. Reviewed, dictated and finalized at location A.
[2020-07-30 19:00] VITALS: BP 127/93; PULSE 89; RESP 20; TEMP 36.7; O2SAT 100
--- NOTE | 2020-07-30 19:00 | ECG_ITS ---
Measurements Intervals [place] Rate: 115 P: 41 ME: 161 QRS: 172 QRSD: 98 T: 3 QT: 336 QTc: 466 Interpretive Statements SINUS TACHYCARDIA RIGHT AXIS DEVIATION CANNOT RULE OUT SEPTAL INFARCT, AGE INDETERMINATE BORDERLINE ST-T WAVE ABNORMALITY- ANT/INF LEADS BASELINE ARTIFACT- I, II, AVR, AVL, AVF ABNORMAL ECG Electronically Signed On 07-30-2020 20:42:10 CDT by Charli Lozano D.O.
[2020-07-30 19:11] VITALS: PULSE 87
[2020-07-30 19:21] LABS: Basophils Percent Auto 0.5 % (0.2-1.2); Eosinophils Percent Auto 0.2 % (0-4.4); Hematocrit 37.2 % (37.0-47.0); Hemoglobin 12.5 g/dL (12.0-15.0); Immature Granulocyte Absolute 0.02 K/mm3 (0.00-0.031); Immature Granulocyte Percent A 0.2 % (0-0.5); Lymphocytes Absolute Auto 3.17 K/mm3 (0.9-3.2); Lymphocytes Percent Auto 36.1 % (18.3-44.2); Mean Corpuscular HGB Conc 33.6 g/dl (32-36); Mean Corpuscular Hemoglobin 30.7 pg (26-34); Mean Corpuscular Volume 91.4 fl (80-100); Mean Platelet Volume 9.8 fl (7.4-10.4); Monocytes Absolute Auto 0.8 K/mm3 (0.1-0.6); Monocytes Percent Auto 9.2 % (2.6-8.5); Neutrophils Absolute Auto 4.7 K/mm3 (1.3-6.7); Neutrophils Percent Auto 53.8 % (45.5-73.1); Platelet Count Result 331 k/mm3 (150-375); Red Blood Count 4.07 M/mm3 (4.2-5.4); Red Cell Distribution Width 12.5 % (11.5-14.5); White Blood Count 8.8 K/mm3 (4.5-10.0)
[2020-07-30 19:30] LABS: INR 0.9; Partial Thromboplastin Time 24.4 SECONDS (22.3-36.8); Prothrombin Time 11.9 Seconds (11.1-14.7)
[2020-07-30 19:31] LABS: Anion Gap 7 mmol/L (8-16); Blood Urea Nitrogen 12 mg/dL (7-17); Calcium 8.8 mg/dL (8.4-10.2); Carbon Dioxide 25 mmol/L (22-30); Chloride 106 mmol/L (98-107); Estimated Glomerular Filt Rate > 60; Glucose 92 mg/dL (65-105); Potassium 3.4 mmol/L (3.4-5.0); Sodium 138 mmol/L (137-145)
[2020-07-30 19:39] VITALS: O2SAT 100
[2020-07-30 19:43] LABS: Troponin I < 0.012 ng/mL (0.000-0.034)
[2020-07-30] MEDS: KETOROLAC 30 MG/ML VIAL (*BKC) IV PUSH (20:02)
--- NOTE | 2020-07-30 20:23 | PC.NURSE ---
Called lab to add on d dimer
--- NOTE | 2020-07-30 20:26 | PC.NURSE ---
lab staff made aware of EDP added D-Dimer to initial labs.
[2020-07-30 20:30] VITALS: BP 131/81; PULSE 68; PULSE 72; RESP 16; RESP 21; O2SAT 100; O2SAT 99
[2020-07-30 20:42] LABS: D Dimer 0.71 ug/mL (<0.48)
--- NOTE | 2020-07-30 20:50 | ED.CHESTPAIN ---
HPI - Chest Pain General Chief Complaint: Chest Pain Stated Complaint: chest pain Time Seen by Provider: 07/30/20 19:31 History of Present Illness HPI narrative: Patient is a 30-year-old female who presents the ER with chest pain. Began last night. Is been recurrent throughout the day where she is getting recurrent sharp twinges of pain to the left side of the chest behind her breast and towards the midline. It is also associated with intermittent numbness going down her left arm which alarmed her. No modifying factors. No alleviating factors. No fevers or chills or sweats. Patient is and recently returned to work. She is not breast-feeding. 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 Related Data Home Medications Medication Instructions Recorded Confirmed norgestrel-ethinyl estradiol 1 tablet PO DAILY 07/30/20 07/30/20 [Reuben (28)] Allergies Allergy/AdvReac Type Severity Reaction Status Date / Time amoxicillin Allergy Mild Hives Verified 07/30/20 18:59 Penicillins Allergy Unknown Hives Verified 07/30/20 18:59 Review of Systems Review of Systems: All systems reviewed & are unremarkable except as noted in HPI and below Constitutional: Constitutional: Denies chills, Denies fatigue and Denies fever(s) ENT: Denies nasal congestion and Denies sore throat Cardiovascular: Cardiovascular: Reports chest pain, Denies rapid heart rate and Reports radiating jaw, neck or arm pain Respiratory: Respiratory: Denies cough, Denies dyspnea and Denies wheezing Gastrointestinal: Gastrointestinal: Denies abdominal pain, Denies nausea and Denies vomiting Musculoskeletal: Comments: No lower extremity edema PMFSH Family History Family History Mother Patient's mother is in good health Father Patient's father is in good health Sibling Patient's sister is in good health Patient's brother is in good health Grandparent Carcinoma of colon Family history of lung cancer Social History Social History Smoking status: Never smoker Alcohol intake: current Drinks per week: 5 Substance use: never Gender identity (if verbalized by the patient): Female Spiritual care concerns: No Exam Narrative: Exam Narrative: GENERAL: Well-appearing, well-nourished, and in no acute distress. HEAD: Normocephalic, atraumatic. ENT: Mucous membranes moist. NECK: No reproducible tenderness in the neck. CHEST: Clear to auscultation. No respiratory distress. HEART: Regular rate and rhythm. Normal peripheral pulses. ABDOMEN: Soft, nontender, nondistended. EXTREMITIES: Normal range of motion. No edema. NEURO: Alert and oriented x3. PSYCH: Normal mood and affect. Course Course Emergency Course: Unremarkable evaluation. Negative troponin, positive D-dimer but no PE on CTA. Recommend anti-inflammatory therapy and follow-up with PCP. Vital Signs Vital signs: Vital Signs Temperature 98.0 F 07/30/20 19:00 Pulse Rate 89 07/30/20 19:00 Respiratory Rate 20 07/30/20 19:00 Blood Pressure 127/93 H 07/30/20 19:00 Pulse Oximetry 100 07/30/20 19:00 Temperature 98.0 F 07/30/20 19:00 Pulse Rate 72 07/30/20 20:30 Respiratory Rate 21 H 07/30/20 20:30 Blood Pressure 131/81 07/30/20 20:30 Pulse Oximetry 99 07/30/20 20:30 MDM - Chest Pain Lab Data Result diagrams: 07/30/20 19:10 07/30/20 19:10 Labs: Lab Results 07/30/20 07/30/20 07/30/20 Range/Units 19:10 19:10 19:10 WBC 8.8 (4.5-10.0) K/mm3 RBC 4.07 L (4.2-5.4) M/mm3 Hgb 12.5 (12.0-15.0) g/dL Hct 37.2 (37.0-47.0) % MCV 91.4 (80-100) fl MCH 30.7 (26-34) pg MCHC 33.6 (32-36) g/dl RDW 12.5 (11.5-14.5) % Plt Count 331 (150-375) k/mm3 MPV 9.8 (7.4-10.4) fl Immature Gran % (Auto) 0.2 (0-0.5) % Neut % (Auto) 5
[2020-07-30 21:53] VITALS: BP 125/72; PULSE 66; RESP 16; O2SAT 100
== END 2020-07-30 22:10 | disposition home or self-care (01) ==
PROVIDERS: Emergency Provider Emergency Medicine; PCP Internal Medicine
DX: R07.89 Other chest pain (principal); M54.12 Radiculopathy, cervical region; R00.0 Tachycardia, unspecified; R94.31 Abnormal electrocardiogram [ECG] [EKG]
CPT/HCPCS: 36415; 71046; 71275; 80048; 81025; 84484; 85025; 85380; 85610; 85730; 93005; 96374; 99284; J1885; Q9967

== ENCOUNTER 2021-06-21 08:38 | Outpatient (CLI) | payer OTHER, SELFPAY ==
[2021-06-21 08:57] LABS: Basophils Percent Auto 0.7 % (0.2-1.2); Eosinophils Percent Auto 0.5 % (0-4.4); Hematocrit 40.1 % (37.0-47.0); Hemoglobin 13.5 g/dL (12.0-15.0); Immature Granulocyte Absolute 0.01 K/mm3 (0.00-0.031); Immature Granulocyte Percent A 0.2 % (0-0.5); Lymphocytes Absolute Auto 1.85 K/mm3 (0.9-3.2); Lymphocytes Percent Auto 32.2 % (18.3-44.2); Mean Corpuscular HGB Conc 33.7 g/dl (32-36); Mean Corpuscular Hemoglobin 32.1 pg (26-34); Mean Corpuscular Volume 95.2 fl (80-100); Mean Platelet Volume 9.7 fl (7.4-10.4); Monocytes Absolute Auto 0.4 K/mm3 (0.1-0.6); Monocytes Percent Auto 7.5 % (2.6-8.5); Neutrophils Absolute Auto 3.4 K/mm3 (1.3-6.7); Neutrophils Percent Auto 58.9 % (45.5-73.1); Platelet Count Result 249 k/mm3 (150-375); Red Blood Count 4.21 M/mm3 (4.2-5.4); Red Cell Distribution Width 12.1 % (11.5-14.5); White Blood Count 5.7 K/mm3 (4.5-10.0)
[2021-06-21 09:21] LABS: Alanine Aminotransferase 24 U/L (4-35); Albumin Level 4.2 g/dL (3.5-5.1); Alkaline Phosphatase 51 U/L (38-126); Anion Gap 6 mmol/L (8-16); Aspartate Amino Transferase 25 U/L (14-36); Bilirubin,Total 0.2 mg/dL (0.2-1.3); Blood Urea Nitrogen 11 mg/dL (7-17); Calcium 9.1 mg/dL (8.4-10.2); Carbon Dioxide 24 mmol/L (22-30); Chloride 108 mmol/L (98-107); Cholesterol 178 mg/dL (0-200); Estimated Glomerular Filt Rate > 60; Glucose 102 mg/dL (65-110); HDL Direct 63 mg/dL; Potassium 4.4 mmol/L (3.4-5.0); Sodium 138 mmol/L (137-145); Triglycerides 62 mg/dL (<150)
[2021-06-21 09:31] LABS: LDL Cholesterol Direct 95 mg/dL
[2021-06-21 10:06] LABS: Vitamin D 25 Hydroxy 36.9 ng/mL
== END 2021-06-21 08:39 | disposition home or self-care (01) ==
PROVIDERS: PCP Internal Medicine; Visit Provider Internal Medicine
DX: Z13.21 Encounter for screening for nutritional disorder (principal); Z00.00 Encounter for general adult medical examination without abnormal findings
CPT/HCPCS: 36415; 80053; 80061; 82306; 85025

== ENCOUNTER → 2021-07-06 14:25 | Outpatient (CLI) | payer OTHER, SELFPAY ==
--- NOTE | ~2021-07-06 | US_ITS ---
US axilla LT DATE: 07/06/2021 14:43 INDICATION: Left axillary lump TECHNIQUE: Real-time imaging and color flow imaging of the left axillary soft tissues COMPARISON: None FINDINGS: A benign appearing 1.28 x 5 x 6.4 mm lymph node is noted in the left axilla, with uniform t hickness and echogenicity of the cortex. No suspicious mass or shadowing is detected. IMPRESSION: BI-RADS Category 2: Benign Reviewed, dictated and finalized at Location [facility]. Reviewed, dictated and finalized at location A. IMPRESSION: BI-RADS Category 2: Benign
== END ==
PROVIDERS: Visit Provider Obstetrics & Gynecology
DX: N63.32 Unspecified lump in axillary tail of the left breast (principal)
CPT/HCPCS: 76882

== ENCOUNTER → 2021-07-20 08:33 | Outpatient (CLI) | payer OTHER, SELFPAY ==
--- NOTE | ~2021-07-20 | US_ITS ---
EXAMINATION: US breast LT limited HISTORY: Palpable lump at the 6:00 location of the breast and pain of the outer breast TECHNIQUE: Limited left breast ultrasound was performed. COMPARISON: 02/25/2013 FINDINGS: A 1.1 x 0.9 cm oval, circumscribed, parallel, hypoechoic mass with posterior acoustic enhan cement and no internal vascularity is present at the 6:00 location 2 cm from the nipple corresponding to the palpable abnormality of concern. This has decreased in size since the prior examination. No s onographic correlate is identified for the patient's reported left breast pain. IMPRESSION: 1. Left breast mass with decrease in size corresponding to the palpable abnormality of concern, consi stent with a benign finding. 2. No specific sonographic correlate is identified for the patient's left breast pain. Further evalua tion at this time should be based on clinical assessment. Continued follow-up physical examination is recommended. BI-RADS Category 2: Benign finding(s). Reviewed, dictated and finalized at location A. IMPRESSION: 1. Left breast mass with decrease in size corresponding to the palpable abnorma lity of concern, consistent with a benign finding. 2. No specific sonographic correlate is identified for the patient's left breas t pain. Further evaluation at this time should be based on clinical assessment. Continued follow-up physical examination is recommended. BI-RADS Category 2: Benign finding(s).
== END ==
PROVIDERS: Visit Provider Obstetrics & Gynecology
DX: N63.20 Unspecified lump in the left breast, unspecified quadrant (principal)
CPT/HCPCS: 76642

== ENCOUNTER 2021-08-13 08:02 | Emergency (ER) | payer OTHER, SELFPAY ==
[2021-08-13 08:12] VITALS: BP 128/66; PULSE 98; RESP 16; TEMP 37.3; O2SAT 100
--- NOTE | 2021-08-13 08:18 | ED.URI ---
HPI - URI/Sore Throat General Stated Complaint: Sore Throat Time Seen by Provider: 08/13/21 08:03 Source: patient and RN notes reviewed History of Present Illness HPI Narrative: Patient is a 31-year-old female who presents the urgent care with complaints of a sore throat and left eye irritation. Patient states that she had a sore throat on Friday and developed a mild cough with sinus congestion over the last couple days. Patient states she did run a fever one time which was resolved with Tylenol. Patient states her daughter was diagnosed with RSV last week and she assumed she had RSV . Patient has been taking Tylenol, Robitussin and Sudafed. States that she woke up with matting and draining to the left eye 2 days ago. States that her daughter was also diagnosed with pinkeye. Currently denies of fever, nausea, vomiting. No other acute complaints. No acute distress noted. Patient aware of the plan of care. Some parts of this dictation were generated by voice recognition software and may contain typographical and/or grammatical inaccuracies. Related Data Allergies Allergy/AdvReac Type Severity Reaction Status Date / Time amoxicillin Allergy Mild Hives Verified 06/15/21 14:49 Penicillins Allergy Unknown Hives Verified 06/15/21 14:49 Review of Systems Review of Systems: CONSTITUTIONAL: Denies fever, chills, or sweats. EYES: Reports of redness, matting and drainage to the left eye ENT: Reports of postnasal drainage, sinus congestion, sore throat CARDIOVASCULAR: Denies chest pain, palpitations, or edema. RESPIRATORY: Reports a mild nonproductive cough without dyspnea GASTROINTESTINAL: Denies abdominal pain, nausea, vomiting, or diarrhea. GENITOURINARY: Denies dysuria or hematuria. SKIN: Denies rash or itching. MUSCULOSKELETAL: Denies back pain, joint pain, or myalgia. NEUROLOGIC: Denies headache, numbness, or weakness. All other systems reviewed are negative, except as documented in HPI. [facility] Past Medical History Medical History (Updated 08/13/21 @ 08:29 by MATTHIAS Sloan) Anxiety disorder, unspecified Family History Family History Mother Patient's mother is in good health Father Patient's father is in good health Sibling Patient's sister is in good health Patient's brother is in good health Grandparent Carcinoma of colon Family history of lung cancer Social History Social History Smoking status: Never smoker Alcohol intake: current Drinks per week: 5 Substance use: never Gender identity (if verbalized by the patient): Female Spiritual care concerns: No Comments At the time of my signature, I reviewed and agree with the nursing past medical, surgical, social, and family history. There is no relevant family history pertinent to the patient complaint. Exam Narrative: GENERAL: This is a well-nourished, well-developed patient, in no apparent distress. HEAD: normocephalic, atraumatic. EYES: PERRL. Sclera clear/white. Vision is grossly intact. Mild injected conjunctiva to the left with yellow matting and clear drainage EARS: External ears normal, auditory canals clear and without drainage, TMs normal without perforation. Hearing grossly intact. NOSE: External nose normal with no obvious nasal discharge, nares without redness, no rhinorrhea. THROAT: Mucous membranes moist, moderate erythema noted to posterior pharynx with moderate postnasal drainage NECK: Neck supple CARDIOVASCULAR: Regular rate and rhythm without murmurs, gallops, or rubs. RESPIRATORY: Clear to auscultation. Breath sounds equal bilaterally. No wheezes, rales, or rhonchi. SKIN: warm, intact with no suspicious lesions or rash, good texture and turgor. NEURO: awake, alert, and oriented to person, place and time. There were no obvious focal neurologic abnormalities. EXTREMITIES: No clubbing, cyanosis, or edema. Course
--- NOTE | 2021-08-13 08:56 | PC.NURSE ---
1200 pt not seen or discharged by nurse
== END 2021-08-13 08:30 | disposition home or self-care (01) ==
PROVIDERS: Emergency Provider Nurse Practitioner Family; PCP Internal Medicine
DX: J02.9 Acute pharyngitis, unspecified (principal); H10.9 Unspecified conjunctivitis
CPT/HCPCS: 87081; 87880; 99213; G0463

== ENCOUNTER 2022-01-28 10:02 | Emergency (ER) | payer OTHER, SELFPAY ==
--- NOTE | 2022-01-28 10:09 | ED.URI ---
HPI - URI/Sore Throat General Chief Complaint: Upper Respiratory Infection Stated Complaint: CONGESTION/SORE THROAT Time Seen by Provider: 01/28/22 10:18 Source: patient, RN notes reviewed and old records reviewed Mode of arrival: ambulatory Limitations: no limitations History of Present Illness HPI Narrative: 31 year old female who presents to [facility] with complaints of having sinus congestion, sinus drainage, sore throat and some headache discomfort for the past 2 weeks. Patient reports that she called her [employer] doctor and was told to try Flonase which she has with no resolution of symptoms. Patient is 18 weeks with second child. Patient denies any fevers, chills, or body aches, she is COVID vaccinated but does not think she had a flu shot this year. Patient reports that she did have COVID in October of 2021. Patient states that she did take a home COVID test which was negative. Related Data Home Medications Medication Instructions Recorded Confirmed prenat.vits,trev,tzv-ogfc-ehfst 1 tablet PO DAILY 11/29/21 11/29/21 Allergies Allergy/AdvReac Type Severity Reaction Status Date / Time amoxicillin Allergy Mild Hives Verified 11/29/21 10:26 Penicillins Allergy Unknown Hives Verified 11/29/21 10:26 Review of Systems Review of Systems: CONSTITUTIONAL: Denies fever, chills, or sweats. EYES: Denies visual changes, redness, or discharge. ENT: rhinorrhea, congestion, sore throat, no otalgia. CARDIOVASCULAR: Denies chest pain, palpitations, or edema. RESPIRATORY: Denies cough or dyspnea. GASTROINTESTINAL: Denies abdominal pain, nausea, vomiting, or diarrhea. GENITOURINARY: Denies dysuria or hematuria. SKIN: Denies rash or itching. MUSCULOSKELETAL: Denies back pain, joint pain, or myalgia. NEUROLOGIC: Positive for headache, no numbness, or weakness. PSYCHIATRIC: positive for history of anxiety or depression. All systems reviewed & are unremarkable except as noted in HPI and below PMFSH Past Medical History Medical History (Updated 01/28/22 @ 10:51 by Caty Campos NP) Anxiety disorder, unspecified Surgical History Surgical History (Updated 01/28/22 @ 10:32 by Caty Campos NP) H/O dilation and curettage S/P wisdom tooth extraction Family History Family History Mother Patient's mother is in good health Father Patient's father is in good health Sibling Patient's sister is in good health Patient's brother is in good health Grandparent Carcinoma of colon Family history of lung cancer Social History Social History (Updated 01/28/22 @ 11:43 by Caty Campos NP) Smoking status: Never smoker Second hand tobacco smoke exposure: No Alcohol intake: current Drinks per week: 5 Alcohol use details: presently no alcohol is 18 weeks Substance use: never Living arrangements: with family Gender identity (if verbalized by the patient): Female Spiritual care concerns: No Comments At time of signature, agree with nursing past medical, surgical, social and family history. There is no relevant family history pertinent to the presenting complaint Exam Narrative: GENERAL: Well-appearing, well-nourished, and in no acute distress. HEAD: Normocephalic, atraumatic. EYES: PERRLA and EOMI. ENT: Nares with some redness and clear rhinorrhea no epistaxis. Mucous membranes moist.TM's normal with good light reflex, throat red with no lesions or exudates, no tonsil enlargement NECK: Supple.no lymphadenopathy CHEST: Clear to auscultation. No respiratory distress. no cough or any tachypnea, SAO2 100% on room air HEART: Regular rate and rhythm. No murmur heard. Normal peripheral pulses. ABDOMEN: Soft, nontender, nondistended, normal active bowel sounds. EXTREMITIES: Normal range of motion. No edema. SKIN: Warm, dry, no rash. NEURO: No focal deficits. Alert and oriented x3. Course Course Level of Care: Express Care Visit
[2022-01-28 10:16] VITALS: BP 112/57; PULSE 102; RESP 16; TEMP 36.4; O2SAT 100
== END 2022-01-28 11:00 | disposition home or self-care (01) ==
PROVIDERS: Emergency Provider Registered Nurse; PCP Internal Medicine
DX: O99.512 Diseases of the respiratory system complicating pregnancy, second trimester (principal); Z3A.18 18 weeks gestation of pregnancy; J06.9 Acute upper respiratory infection, unspecified
CPT/HCPCS: 87081; 87880; 99213; G0463

== ENCOUNTER 2022-04-03 21:43 | Outpatient (RCR) | payer OTHER, SELFPAY ==
[2022-04-03 22:24] VITALS: BP 105/55; PULSE 80
== END 2022-07-02 23:59 | disposition home or self-care (01) ==
LOC: ANHOBOP 21:43
PROVIDERS: PCP Internal Medicine; Visit Provider Obstetrics & Gynecology
DX: O36.8120 Decreased fetal movements, second trimester, not applicable or unspecified (principal); Z3A.27 27 weeks gestation of pregnancy
CPT/HCPCS: 59025

== ENCOUNTER 2022-04-23 17:38 | Observation (INO) | payer OTHER, SELFPAY ==
[2022-04-23] VITALS (14 sets, daily range): BP systolic 113–115; BP diastolic 56–69; PULSE 92–114; O2SAT 98–100; BMI 31.5
[2022-04-23 18:23] LABS: Appearance Urine Clear (Clear); Bilirubin Urine Negative (Negative); Blood Urine Negative (Negative); Glucose Urine UA Negative (Negative); Ketones Urine 1+ mg/dL (Negative); Leukocyte Esterase Ur Negative LEU/UL (NEGATIVE); Nitrate Urine Negative (Negative); Protein Urine Negative (Negative); Urobilinogen Urine 0.2 mg/dL (<2.0)
[2022-04-23 18:33] LABS: Add Urine Microscopic? YES; Color Urine Light Yellow (Yellow)
[2022-04-23 18:40] LABS: Bacteria Urine Trace /hpf; RBC Urine 0-2 /hpf (0-2); Squamous Epithelial Cell Urine Rare /hpf (Few); WBC Urine 0-3 /hpf (0-3)
[2022-04-23 19:37] LABS: Fetal Fibronectin Negative
[2022-04-23] MEDS: TERBUTALINE SULFATE 1 MG/ML VIAL 0.25 MG SUB-Q (20:03)
--- NOTE | 2022-04-23 21:20 | OBADM ---
This patient, Kenzie Wynne, admitted to the OB room OB Post 115 for observation. Patient/family oriented to hospital policies and general routines including ID bracelet, bed and alarms, visiting hours, pain management, procedures, bathroom and other care routines, personal items, smoking policy, room service/diet, and visiting hours. Patient/Family are encouraged to report perceived risks to care and to ask questions if they do not understand what they are told or what they should do.
--- NOTE | 2022-04-23 22:37 | PC.NURSE ---
1814- pt came in c/o contractions that started about. she states that she feels tightening throughout entire stomach and some in her back. baby very active per pt. 1828- called Dr. Rainer Cortez- informed of pt admission. T reviewed. orders received for FFN, cervical exam. if no contractions, closed cervix, and negative FFN-pt may d/c home. 1939- page Dr. Rainer Cortez 1942- Dr. Rainer Cotrez responded to page. pt states that she is feeling contractions more now since she was up to restroom. contractions about every 3-8 minutes. order received for terbutaline up to 3 doses if needed. if contractions subside. pt may d/c home. 2024- pt states that she isn't sure if she is feeling contractions or if it is baby moving. baby is very active. 2099- pt up to bathroom- pt states that baby is very active but that she isn't feeling any contractions. pt requesting to d/c home.
--- NOTE | 2022-04-24 16:52 | P.PNOB_ITS ---
OB - Triage/Final Diagnosis Visit Information Date of evaluation: 04/24/22 Reason for evaluation: threatened labor Comments/Additional reasons for admission: I have assessed the risk for this patient, Kenzie Wynne, and determined that she would benefit from observation care. Evaluation Laboratory results: Laboratory Tests 04/23/22 04/23/22 18:05 19:05 Urine Color Light yellow Urine Appearance Clear Urine pH 6.0 Ur Specific [place] 1.010 Urine Protein Negative Urine Glucose (UA) Negative Urine Ketones 1+ H Ur Blood (Man) Negative Urine Nitrate Negative Urine Bilirubin Negative Urine Urobilinogen 0.2 Ur Leukocyte Esterase Negative Urine RBC 0-2 Urine WBC 0-3 Ur Squamous Epith Cells Rare Urine Bacteria Trace Fibronectin Negative Vital signs: Vital Signs - 24 hr 04/23/22 18:09 04/23/22 20:03 04/23/22 20:08 Pulse Rate 108 H Blood Pressure 113/69 Pulse Oximetry 100 100 Oxygen Delivery 04/23/22 20:13 04/23/22 20:18 04/23/22 20:23 Pulse Rate Blood Pressure Pulse Oximetry 99 99 100 Oxygen Delivery 04/23/22 20:28 04/23/22 20:33 04/23/22 20:38 Pulse Rate Blood Pressure Pulse Oximetry 98 99 98 Oxygen Delivery 04/23/22 20:43 04/23/22 20:48 04/23/22 20:53 Pulse Rate Blood Pressure Pulse Oximetry 99 98 98 Oxygen Delivery 04/23/22 20:58 04/23/22 21:03 04/23/22 21:19 Pulse Rate 92 Blood Pressure 115/56 L Pulse Oximetry 98 Oxygen Delivery Room Air
== END 2022-04-23 21:35 | disposition home or self-care (01) ==
PROVIDERS: Admitting Provider Obstetrics & Gynecology; PCP Internal Medicine; Visit Provider Obstetrics & Gynecology
DX: O47.03 False labor before 37 completed weeks of gestation, third trimester (principal); Z3A.30 30 weeks gestation of pregnancy
CPT/HCPCS: 81001; 82731; 87086; 96372; G0378; G0379; J3105

== ENCOUNTER 2022-06-09 17:18 | Observation (INO) | payer OTHER, SELFPAY ==
--- NOTE | 2022-06-09 17:18 | OBADM ---
This patient, Kenzie Wynne, admitted to the OB room Labor/Delivery/Recovery 108 for observation. Patient/family oriented to hospital policies and general routines including ID bracelet, bed and alarms, visiting hours, pain management, procedures, bathroom and other care routines, personal items, smoking policy, room service/diet, and visiting hours. Patient/Family are encouraged to report perceived risks to care and to ask questions if they do not understand what they are told or what they should do.
--- NOTE | 2022-06-12 07:54 | PM.OBTRLD ---
OB - Triage/Final Diagnosis Visit Information Reason for evaluation: threatened labor Comments/Additional reasons for admission: I have assessed the risk for this patient, Kenzie Wynne, and determined that she would benefit from observation care.
== END 2022-06-09 20:32 | disposition home or self-care (01) ==
PROVIDERS: Admitting Provider Obstetrics & Gynecology; PCP Internal Medicine; Visit Provider Obstetrics & Gynecology
DX: O60.00 Preterm labor without delivery, unspecified trimester (principal)
CPT/HCPCS: G0378; G0379

== ENCOUNTER 2022-07-04 05:55 | Inpatient (IN) | payer OTHER, SELFPAY ==
[2022-07-04] VITALS (78 sets, daily range): BP systolic 85–131; BP diastolic 37–82; PULSE 62–158; RESP 16; TEMP 36.2–37.1; O2SAT 99–100; BMI 33.8
[2022-07-04 07:01] LABS: Basophils Percent Auto 0.3 % (0.2-1.2); Eosinophils Percent Auto 0.4 % (0-4.4); Hematocrit 38.6 % (37.0-47.0); Hemoglobin 12.5 g/dL (12.0-15.0); Immature Granulocyte Absolute 0.08 K/mm3 (0.00-0.031); Immature Granulocyte Percent A 1.1 % (0-0.5); Lymphocytes Percent Auto 26.5 % (18.3-44.2); Mean Corpuscular HGB Conc 32.4 g/dl (32-36); Mean Corpuscular Hemoglobin 30.6 pg (26-34); Mean Corpuscular Volume 94.4 fl (80-100); Mean Platelet Volume 10.3 fl (7.4-10.4); Monocytes Absolute Auto 0.6 K/mm3 (0.1-0.6); Monocytes Percent Auto 8.4 % (2.6-8.5); Neutrophils Absolute Auto 4.5 K/mm3 (1.3-6.7); Neutrophils Percent Auto 63.3 % (45.5-73.1); Platelet Count Result 218 k/mm3 (150-375); Red Blood Count 4.09 M/mm3 (4.2-5.4); Red Cell Distribution Width 14.3 % (11.5-14.5); White Blood Count 7.2 K/mm3 (4.5-10.0)
--- NOTE | 2022-07-04 07:37 | PM.IMHP ---
H&P: HPI History of Present Illness Date/Time: 07/04/22 07:37 Chief Complaint: Induction of labor at term Narrative: 32-year-old 2 para 1 whose last menstrual period was 09/25/2021, EDC is 06/30/2022, confirmed by 10 week ultrasound presents at term for induction of labor. She is postdates and negative for group B strep. Her cervix is favorable PMFSH Past Medical History Medical History Anxiety disorder, unspecified Surgical History Surgical History H/O dilation and curettage S/P wisdom tooth extraction Family History Family History Mother Patient's mother is in good health Father Patient's father is in good health Sibling Patient's brother is in good health Patient's sister is in good health Grandparent Family history of lung cancer Carcinoma of colon Hypertension Social History Social History Smoking status: Never smoker Second hand tobacco smoke exposure: No Alcohol intake: current Drinks per week: 5 Alcohol use details: presently no alcohol is 18 weeks Substance use: never Gender identity (if verbalized by the patient): Female Spiritual care concerns: No Meds Home Medications and Allergies Home Medications Medication Instructions Recorded Confirmed Type prenat.vits,trev,sea-hbdl-kptku 1 tablet PO DAILY 11/29/21 07/04/22 History Allergies Allergy/AdvReac Type Severity Reaction Status Date / Time amoxicillin Allergy Mild Hives Verified 06/09/22 22:15 Penicillins Allergy Unknown Hives Verified 06/09/22 22:15 Vital Signs Vital Signs - 24 hr 07/04/22 06:36 Oxygen Delivery Room Air Exam Const: General: cooperative, healthy appearing and comfortable Nutritional Appearance: average body habitus Orientation/consciousness: oriented to person, oriented to place and oriented to time Resp: Effort & Inspection: normal respiratory effort Cardio: Rate: regular rate Rhythm: regular rhythm Heart sounds: S1 normal heart sound present and S2 normal heart sound present GI: Inspection: normal to inspection Auscultation: normal bowel sounds : External Female Exam: normal external appearance Speculum Exam - Vagina: normal appearance of the vagina Speculum Exam - Cervix: Cervical os open ( cervix 80/1. AROM clear. FHTs reassuring.) H&P: Results Labs Labs: Short CBC 07/04/22 Range/Units 06:40 WBC 7.2 (4.5-10.0) K/mm3 Hgb 12.5 (12.0-15.0) g/dL Hct 38.6 (37.0-47.0) % Plt Count 218 (150-375) k/mm3 Assessment and Plan Assessment and plan (1) : Code(s): Z34.90 - Encounter for supervision of normal , unspecified, unspecified trimester Status: Acute Plan Medical induction of labor. Spontaneous vaginal of expected. She has an epidural candidate
[2022-07-04 07:55] LABS: HIV 1/2 Ab P24 Ag Result Negative (Negative)
[2022-07-04] MEDS: LACTATED RINGERS 1,000 ML 125 ML IV CONT ×2 (09:00→15:00)
[2022-07-04] MEDS: OXYTOCIN 30 UNITS/NS 500 ML 30 UNITS/500 ML BAG IV CONT (09:01)
--- NOTE | 2022-07-04 11:34 | PM.OBPNLAB ---
Pain Control Date/time seen: 07/04/22 11:34 Pain control: tolerating well Pelvic Exam Dilation (cm): 3 Effacement (%): 80 station: -1 Amniotic membrane status: Leaking
[2022-07-04] MEDS: fentaNYL CITRATE INJ (*CRX) 100 MCG/2 ML VIAL 50 MCG IV PUSH (13:52)
--- NOTE | 2022-07-04 14:24 | WPDANESEPP ---
Anes - Eval Pre Procedure Procedure: Labor Epidural Date/Time: 07/04/22 14:24 Surgeon: Rainer Cortez Preop Diagnosis: Pain during labor Pre Op Diagnosis: iol Patient Data Age: 32 Gender: F Height: 1.57 m Weight: 84 kg Last Vital Signs Temp 37.1 C 07/04/22 10:35 Pulse 78 07/04/22 14:00 BP 116/70 07/04/22 14:00 O2 Del Method Room Air 07/04/22 06:36 Allergies Allergy/AdvReac Type Severity Reaction Status Date / Time amoxicillin Allergy Mild Hives Verified 06/09/22 22:15 Penicillins Allergy Unknown Hives Verified 06/09/22 22:15 Home Medications Medication Instructions Recorded Confirmed Type prenat.vits,trev,zcv-ocmi-hohbs 1 tablet PO DAILY 11/29/21 07/04/22 History Laboratory Tests 07/04/22 07/04/22 07/04/22 06:40 06:40 06:40 WBC 7.2 K/mm3 K/mm3 (4.5-10.0) RBC 4.09 M/mm3 L M/mm3 (4.2-5.4) Hgb 12.5 g/dL g/dL (12.0-15.0) Hct 38.6 % % (37.0-47.0) MCV 94.4 fl fl (80-100) MCH 30.6 pg pg (26-34) MCHC 32.4 g/dl g/dl (32-36) RDW 14.3 % % (11.5-14.5) Plt Count 218 k/mm3 k/mm3 (150-375) MPV 10.3 fl fl (7.4-10.4) Immature Gran % (Auto) 1.1 % H % (0-0.5) Neut % (Auto) 63.3 % % (45.5-73.1) Lymph % (Auto) 26.5 % % (18.3-44.2) [place] % (Auto) 8.4 % % (2.6-8.5) Eos % (Auto) 0.4 % % (0-4.4) Baso % (Auto) 0.3 % % (0.2-1.2) Lymph # (Auto) 1.90 K/mm3 K/mm3 (0.9-3.2) [place] # (Auto) 0.6 K/mm3 K/mm3 (0.1-0.6) Eos # (Auto) 0.0 K/mm3 K/mm3 (0-0.3) Baso # (Auto) 0.0 K/mm3 K/mm3 (0.0-0.1) Abs Immat Gran (auto) 0.08 K/mm3 H K/mm3 (0.00-0.031) Absolute Neuts (auto) 4.5 K/mm3 K/mm3 (1.3-6.7) Absolute Nucleated RBC 0.0 K/mm3 K/mm3 (0.0-0.012) Nucleated RBC % 0.0 % % (0.0-0.2) RPR Pending HIV 1&2 Ab/P24 Ag 4thGn Negative (Negative) Blood Type Antibody Screen 07/04/22 06:40 WBC RBC Hgb Hct MCV MCH MCHC RDW Plt Count MPV Immature Gran % (Auto) Neut % (Auto) Lymph % (Auto) [place] % (Auto) Eos % (Auto) Baso % (Auto) Lymph # (Auto) [place] # (Auto) Eos # (Auto) Baso # (Auto) Abs Immat Gran (auto) Absolute Neuts (auto) Absolute Nucleated RBC Nucleated RBC % RPR HIV 1&2 Ab/P24 Ag 4thGn Blood Type A Negative Antibody Screen Negative Patient hx anesthesia problems: none Family hx anesthesia problems: none Results Review: All pre-operative results and documents have been reviewed as part of the pre-operative evaluation. [facility] Past Medical History Medical History Anxiety disorder, unspecified Surgical History Surgical History H/O dilation and curettage S/P wisdom tooth extraction Family History Family History Mother Patient's mother is in good health Father Patient's father is in good health Sibling Patient's brother is in good health Patient's sister is in good health Grandparent Family history of lung cancer Carcinoma of colon Hypertension Social History Social History Smoking status: Never smoker Second hand tobacco smoke exposure: No Alcohol intake: current Drinks per week: 5 Alcohol use details: presently no alcohol is 18 weeks Substance use: never Gender identity (if verbalized by the patient): Female Spiritual care concerns: No Exam Day of Procedure 07/04/22 14:24 Patient weight: obese Heart: regular rate and rhythm
[2022-07-04 15:52] LABS: Rapid Plasma Reagin Non-Reactive (NonReactive)
--- NOTE | 2022-07-04 16:15 | PM.OBPNLAB ---
Pain Control Date/time seen: 07/04/22 16:15 Pain control: tolerating well and epidural Pelvic Exam Dilation (cm): 6 Effacement (%): 100 station: -1 Amniotic membrane status: Leaking
[2022-07-04] MEDS: ONDANSETRON INJ 4 MG/2 ML VIAL IV PUSH (17:38)
[2022-07-04] MEDS: METHYLERGONOVINE MALEATE 0.2 MG/ML VIAL IM (18:41)
--- NOTE | 2022-07-04 18:45 | PM.OBPRVD ---
OB - Delivery Note Procedure Delivery date: 07/04/22 Induction method: AROM Delivery monitor: External FHT and Internal Uterine Route of delivery: Laceration Description: None Quantitative Blood Loss (ml): 259 Anesthesia type: Epidural Disposition: Floor Baby Date of : 07/04/22 Time of : 18:31 Weeks of gestation at delivery: 40 Infant gender: Female Weight (pounds): 7 Weight (ounces): 12 presentation: vertex position: Right Occiput Anterior Placenta delivery description: Spontaneous Cord Vessel Description: 3 Vessels score one minute: 8 score five minutes: 9
[2022-07-04] MEDS: OXYTOCIN 30 UNITS/NS 500 ML 30 UNITS/500 ML BAG 125 UNITS IV CONT (18:58)
[2022-07-04] MEDS: IBUPROFEN 600 MG TABLET PO (19:00)
[2022-07-04] MEDS: FAMOTIDINE 20 MG/2 ML VIAL IV PUSH (19:31)
[2022-07-04] MEDS: ACETAMINOPHEN 325 MG TABLET 650 MG PO (22:30)
[2022-07-05 02:50] VITALS: BP 98/50; PULSE 78; RESP 16; TEMP 36.3
[2022-07-05 05:46] LABS: Hematocrit 34.2 % (37.0-47.0); Hemoglobin 11.1 g/dL (12.0-15.0)
[2022-07-05 07:35] VITALS: BP 113/63; PULSE 79; RESP 18; TEMP 36.2; O2SAT 100
[2022-07-05] MEDS: DOCUSATE SODIUM 100 MG CAPSULE PO ×2 (09:15→17:06)
[2022-07-05] MEDS: IBUPROFEN 600 MG TABLET PO ×2 (09:16→17:06)
[2022-07-05] MEDS: TETANUS,DIPHTHERIA,AC PERTUSSIS ADULT (0.5 ML) BOOSTRIX IM (09:16)
--- NOTE | 2022-07-05 11:36 | WPDANLDPN2 ---
Anes-Prog Note L&D Date/Time: 07/05/22 11:36 Comfortable throughout: labor and delivery Neuraxial method: epidural Epidural/Spinal procedure site: clean & non-tender Neuro status: Neuro function grossly intact. Cardiovascular status: normal Respiratory status: normal Airway patency: baseline Mental status: baseline Post-Op hydration status: normal Vital Signs: Last Vital Signs Temp 36.2 C L 07/05/22 07:35 Pulse 79 07/05/22 07:35 Resp 18 07/05/22 07:35 BP 113/63 07/05/22 07:35 Pulse Ox 100 07/05/22 07:35 O2 Del Method Room Air 07/04/22 06:36 Pain score (VAS): 2 I/O: Intake & Output 07/04/22 07/05/22 07/05/22 23:59 07:59 15:59 Intake Total 1999 Output Total 105 Balance 1895 Post-procedural complaints: none Patient feedback: Patient satisfied with anesthetic care.
[2022-07-05 12:05] VITALS: BP 107/54; PULSE 81; RESP 18; TEMP 36.5; O2SAT 99
[2022-07-05] MEDS: ACETAMINOPHEN 325 MG TABLET 650 MG PO ×2 (14:01→20:50)
[2022-07-05 17:00] VITALS: BP 121/80; PULSE 82; RESP 16; TEMP 36.3
[2022-07-05 20:00] VITALS: BP 127/60; PULSE 94; RESP 18; TEMP 36.5
[2022-07-06] MEDS: IBUPROFEN 600 MG TABLET PO ×2 (03:46→11:28)
[2022-07-06 08:30] VITALS: BP 116/65; PULSE 74; RESP 16; TEMP 36.7; O2SAT 99
[2022-07-06] MEDS: DOCUSATE SODIUM 100 MG CAPSULE PO (08:52)
[2022-07-06] MEDS: ACETAMINOPHEN 325 MG TABLET 650 MG PO (08:53)
--- NOTE | 2022-07-06 11:31 | PM.OBPNVD ---
OB - PN: Subj Subjective Date/time seen: 07/06/22 11:31 Narrative: Pain OK. Would like to go home. OB - PN: Obj Data Labs CBC & Chem 7: 07/05/22 02:53 OB - PN A/P Plan Comments: A: PPD#2, doing well. P: Home to f/u 6 weeks. Exam Psych: Other: AVSS ABD soft, nontender, fundus firm EXT nontender
--- NOTE | 2022-07-09 11:14 | PM.OBDSVD ---
DS: Admitting Diagnosis Discharge Date 07/06/22 Admitting Diagnosis IUP at term DS: Discharge Diagnosis Discharge Diagnosis (1) (normal spontaneous vaginal delivery): Code(s): O80 - Encounter for full-term uncomplicated delivery Status: Acute OB - DS: Summary OB Procedures : None OB Procedures Intrapartum: Spontaneous Vag Delivery OB Procedures: : None Time Spent with Patient Time attestation: Total time spent providing and/or coordinating discharge services: Discharge Plan Discharge Attending physician on discharge: Ramon Robledo Consulting providers: Naa Lynne Discharging Clinician: Ramon Robledo Patient Disposition: Home, Self-Care Activity: pelvic rest Diet: regular Discharge Instructions: Education: Mom and Baby Guide Given to: Mother Follow-Up: Call your delivering provider's office for an appointment to be seen in: 6 Weeks Mom and baby should come to the [facility] for the follow-up appointment. Appointment Date/Time: July 09, 2022 at 11:00 am What to expect at your follow-up visit: Blood Pressure Check Physical Assessment Call [phone] if you are unable to keep your appointment time. BREAST CARE: * Wear a snug supportive bra. * For engorgement discomfort: Bottle Feeding: * May apply ice packs PERINEAL CARE: * Until bleeding stops, use your melody bottle after urinating * Change your pad frequently throughout the day * You may take sitz baths several times a day (fill your bathtub with warm water and soak for 20 minutes.) Do NOT bathe in the water * No tub baths until seen by your physician - You may shower ACTIVITY: * Rest as much as possible. * Do not exercise or lift anything heavier than your baby (such as laundry or other children.) * Avoid stairs or driving as much as possible. * Do not put anything into the vagina. No douching, tampons, or sexual activity until seen by physician. NOTIFY PHYSICIAN IF YOU HAVE ANY QUESTIONS OR IF ANY OF THE FOLLOWING SYMPTOMS OCCUR: * If your episiotomy or incision becomes red, swollen, or more painful than what you have experienced in the hospital. * If your vaginal bleeding becomes foul smelling. * If your vaginal bleeding becomes more heavy than a period or if your bleeding changes from pink to bright red. However, you may pass an occasional walnut-sized clot once or twice for the first week . * If you experience a sharp, shooting pain in you calves. * If you discover a hard, reddened area on your breast or if you experience flu-like symptoms. DIET: * Eat regular, well-balanced meals. * Drink plenty of fluids daily. Call or return if temperature above 100.4? F, increased abdominal pain, increased vaginal bleeding or any new problems. Stand Alone Forms: General Discharge Information Follow-up/Referrals: Ramon Robledo MD [Physician] - 6 Weeks Discharge Medications: New ibuprofen 600 mg tablet 600 mg PO Q6H PRN (Reason: cramps) Qty: 30 0RF Continued prenat.vits,trev,hjd-vbub-rlezt Tablet 1 tablet PO DAILY Date of admission: 07/04/22 05:55 Primary Care Provider: Sourav Mujica Admitting Provider: Ramon Robledo Attending physician on admission: Melvin Espana Condition: Stable
[2022-07-09 11:25] VITALS: BP 122/67; PULSE 89; RESP 20; TEMP 36.8; O2SAT 99
== END 2022-07-06 13:32 | disposition home or self-care (01) | DRG 807 ==
LOC: ANHLDR 06:43 → ANHOB2 07-06 11:33 → ANHLDR 07-09 08:53 → ANHOB2 07-09 08:53
PROVIDERS: Admitting Provider Obstetrics & Gynecology; PCP Internal Medicine; Visit Provider Obstetrics & Gynecology
DX: O80 Encounter for full-term uncomplicated delivery (principal); Z37.0 Single live birth; Z3A.40 40 weeks gestation of pregnancy; Z88.0 Allergy status to penicillin; Z23 Encounter for immunization
CPT/HCPCS: 36415; 85014; 85018; 85025; 86592; 86703; 86850; 86900; 86901; 90471; 90686; 90715; A9270; G0008; G0432; J2210; J2405; J2590; J2795; J3010; J7120

== ENCOUNTER 2022-08-19 18:30 | Emergency (ER) | payer OTHER, SELFPAY ==
[2022-08-19 18:40] VITALS: BP 119/69; PULSE 90; RESP 20; TEMP 37.1; O2SAT 99
--- NOTE | 2022-08-19 18:42 | ED.URI ---
HPI - URI/Sore Throat General Chief Complaint: Upper Respiratory Infection Stated Complaint: sore throat runny nose Time Seen by Provider: 08/19/22 18:56 Source: patient and RN notes reviewed Mode of arrival: ambulatory Limitations: no limitations History of Present Illness HPI Narrative: 32-year-old female presents with concern for hoarse voice, sore throat, cough. Reports sore throat symptoms started on Friday, throat throat is improving slightly however she lost her voice today and became hoarse. She reports she has been taking some gkks-vno-qezhxcj medication with mild relief. She is concerned because she has a 6-week-old baby at home. She denies difficulty swallowing or drooling. MD elicited complaint: sore throat Related Data Home Medications Medication Instructions Recorded Confirmed prendavid.vits,trev,lry-txjy-gmrcc 1 tablet PO DAILY 11/29/21 07/04/22 Allergies Allergy/AdvReac Type Severity Reaction Status Date / Time amoxicillin Allergy Mild Hives Verified 06/09/22 22:15 Penicillins Allergy Unknown Hives Verified 06/09/22 22:15 Review of Systems Review of Systems: CONSTITUTIONAL: Denies malaise, chills, sweats, or fever. EYES: Denies visual changes, redness, or discharge. ENT: Reports rhinorrhea, congestion, sore throat, hoarse voice. Denies sinus pain, otalgia CARDIOVASCULAR: Denies chest pain, palpitations, or edema. RESPIRATORY: Reports cough. Denies dyspnea. GASTROINTESTINAL: Denies abdominal pain, nausea, vomiting, diarrhea SKIN: Denies rash or itching. MUSCULOSKELETAL: Denies myalgia. NEUROLOGIC: Denies headache. All systems reviewed & are unremarkable except as noted in HPI and below PMFSH Past Medical History Medical History Anxiety disorder, unspecified Surgical History Surgical History H/O dilation and curettage S/P wisdom tooth extraction Family History Family History Mother Patient's mother is in good health Father Patient's father is in good health Sibling Patient's brother is in good health Patient's sister is in good health Grandparent Family history of lung cancer Carcinoma of colon Hypertension Social History Social History Smoking status: Never smoker Second hand tobacco smoke exposure: No Alcohol intake: current Drinks per week: 5 Alcohol use details: presently no alcohol is 18 weeks Substance use: never Gender identity (if verbalized by the patient): Female Spiritual care concerns: No Comments At time of signature, agree with nursing past medical, surgical, social and family history. There is no relevant family history pertinent to the presenting complaint Exam Narrative: GENERAL: Well-appearing, well-nourished, and in no acute distress. HEAD: Normocephalic EYES: PERRLA, conjunctivae clear ENT: Nares clear, clear discharge. Mucous membranes moist. TM pearly moreau with dull light reflex bilaterally; no tragal tenderness. Oropharynx mildly erythematous without lesions. Tonsils not enlarged and without exudate, no drooling, no hoarseness, no trismus, uvula midline. NECK: Supple. No lymphadenopathy CHEST: Clear to auscultation, breath sounds equal. No wheezing, rhonchi, rales, or stridor. No respiratory distress, speaks in full sentences. HEART: Regular rate and rhythm. No murmur heard. SKIN: Warm, dry, no rash. NEURO: Alert and oriented x3. PSYCH: Normal mood and affect Course Course Emergency Course: Patient is aware of diagnosis, understands and agrees to treatment plan. Anticipatory guidance given. Patient agrees to follow-up as directed and is aware of reasons to seek care at the emergency department. Portions of this record may have been created with voice recognition software Level of Care: Express
== END 2022-08-19 19:25 | disposition home or self-care (01) ==
PROVIDERS: Emergency Provider Nurse Practitioner; PCP Internal Medicine
DX: J02.9 Acute pharyngitis, unspecified (principal); J06.9 Acute upper respiratory infection, unspecified; Z20.822 Contact with and (suspected) exposure to COVID-19
CPT/HCPCS: 87081; 87420; 87426; 87804; 87880; 99213; C9803; G0463

== ENCOUNTER 2022-12-26 08:44 | Outpatient (CLI) | payer OTHER, SELFPAY ==
[2022-12-26 10:50] LABS: Hematocrit 41.1 % (37.0-47.0); Hemoglobin 13.7 g/dL (12.0-15.0); Mean Corpuscular HGB Conc 33.3 g/dl (32-36); Mean Corpuscular Hemoglobin 31.5 pg (26-34); Mean Corpuscular Volume 94.5 fl (80-100); Mean Platelet Volume 10.1 fl (7.4-10.4); Platelet Count Result 253 k/mm3 (150-375); Red Blood Count 4.35 M/mm3 (4.2-5.4); Red Cell Distribution Width 11.9 % (11.5-14.5); White Blood Count 6.3 K/mm3 (4.5-10.0)
[2022-12-26 10:59] LABS: Alanine Aminotransferase 26 U/L (6-35); Albumin Level 4.3 g/dL (3.5-5.1); Alkaline Phosphatase 51 U/L (38-126); Anion Gap 5 mmol/L (8-16); Aspartate Amino Transferase 25 U/L (14-36); Bilirubin,Total 0.5 mg/dL (0.2-1.3); Blood Urea Nitrogen 14 mg/dL (7-17); Calcium 8.7 mg/dL (8.4-10.2); Carbon Dioxide 26 mmol/L (22-30); Chloride 104 mmol/L (98-107); Cholesterol 149 mg/dL (0-200); Estimated Glomerular Filt Rate > 60; Glucose 87 mg/dL (65-110); HDL Direct 57 mg/dL; Potassium 4.2 mmol/L (3.4-5.0); Sodium 135 mmol/L (137-145); Triglycerides 73 mg/dL (<150)
[2022-12-26 11:10] LABS: LDL Cholesterol Direct 85 mg/dL
== END 2022-12-26 08:45 | disposition home or self-care (01) ==
LOC: ANHLAB 08:47
PROVIDERS: PCP Internal Medicine; Visit Provider Nurse Practitioner
DX: Z00.00 Encounter for general adult medical examination without abnormal findings (principal)
CPT/HCPCS: 36415; 80053; 80061; 84443; 85027

== ENCOUNTER → 2023-01-06 11:36 | Outpatient (CLI) | payer OTHER, SELFPAY ==
--- NOTE | ~2023-01-06 | US_ITS ---
US axilla LT 01/06/2023 11:54 Indication: Left axillary swelling and pain Procedure: High-resolution ultrasound of the left axilla Comparison: 07/06/2021 Findings: In the area of palpable concern/swelling there is a 1.3 cm lymph node with normal fatty hil um. No suspicious masses to suggest malignancy. Impression: 1: Normal 1.3 cm left axillary lymph node in the area of palpable concern. BI-RADS CATEGORY 2 - BENIGN FINDINGS Reviewed, dictated and finalized at location A. Impression: 1: Normal 1.3 cm left axillary lymph node in the area of palpable concern. BI-RADS CATEGORY 2 - BENIGN FINDINGS
== END ==
PROVIDERS: PCP Internal Medicine; Visit Provider Nurse Practitioner
DX: R22.32 Localized swelling, mass and lump, left upper limb (principal)
CPT/HCPCS: 76882

== ENCOUNTER 2023-01-10 02:06 | Day surgery (SDC) | payer OTHER, SELFPAY ==
[2022-12-31 09:10] VITALS: BMI 27.3
--- NOTE | 2022-12-31 09:27 | PC.NURSE ---
Report to the Outpatient Waiting Room, entrance under the green pavilion located off [facility], at time _10:00AM_ on date _12/31/22 . Planned Procedure Time: __12:00AM__. Time changes happen often and if your time is changed the preop area will call you the afternoon before. - You and your visitor will be asked to self-screen and do not enter if you have any COVID symptoms. - Only one visitor is requested with a max of two and NO children visitors are allowed at this time. - The patient visitor may be requested to leave or wait in car when not with patient due to distancing restrictions. - A mask is optional within the hospital at this time. Patients may have clear liquids (water, carbonated beverages, clear teas, apple juice) until 3 hours prior to surgery with a maximum of 20 ounces. - No food from midnight until time of surgery - Take the following medications with a SIP of water the morning of surgery: ____BCP DO NOT STOP ANY OF YOUR OTHER PRESCRIPTION MEDICATIONS PRIOR TO SURGERY ?EXCEPT THE FOLLOWING Medications to discontinue per physician N/A Date to take last dose___N/A Please no make-up, nail panamanian, hairspray, perfume, deodorant, or body powder the day of surgery. No jewelry (including any body piercings) or valuables the day of surgery, leave them at home. Please take a shower or bath the night before, or the morning of, surgery with an antibacterial soap. Wear comfortable, loose fitting clothing. - Jewelry must be removed prior to entering the operating room. Rings and piercings that are not removed may be cut off. - The hospital will not accept responsibility for valuables. - Please leave all valuables, including medications, at home the day of surgery. If you are going home after surgery, a licensed sulky driver must drive you home. - NO public transportation without another adult if you receive anesthesia. - We recommend that an adult stay with you for 24 hours following discharge. - We also recommend that you do not drive, make important decision, drink alcoholic beverages, or take any drugs that were not prescribed by your health care provider for at least 24 hours after your discharge time. Follow any additional instructions given to you from your surgeon. If you or anyone in your household have experienced Covid symptoms in the past week, please notify your surgeon or the nurse liaison at the phone number below for possible testing. Telephone instructions given to _RACHEL_and asked if any additional questions and then verbalized understanding. Patient advised to call surgeon office or pre surgery nurse liaison [phone] if any additional questions.
[2023-01-10 10:43] VITALS: BP 98/62; PULSE 79; RESP 16; TEMP 37.1; O2SAT 100
[2023-01-10] MEDS: LACTATED RINGERS 1,000 ML 30 ML IV CONT (10:47)
--- NOTE | 2023-01-10 10:47 | WPDANESEPPF ---
Anes - Initial Pre Proc Eval Procedure: Operation Date: 01/10/23 12:00 Proposed Procedures p Excision Biopsy of Left Axillary Mass - Jona Henderson DO Date/Time: 01/10/23 10:47 Surgeon: Jona Henderson DO Pre Op Diagnosis: Left Axillary Mass Patient Data Age: 32 Gender: F Height: 1.6 m Weight: 70 kg Last Vital Signs Temp 37.1 C 01/10/23 10:43 Pulse 79 01/10/23 10:43 Resp 16 01/10/23 10:43 BP 98/62 L 01/10/23 10:43 Pulse Ox 100 01/10/23 10:43 O2 Del Method Room Air 01/10/23 10:43 Allergies Allergy/AdvReac Type Severity Reaction Status Date / Time amoxicillin Allergy Mild Hives Verified 01/10/23 10:18 Penicillins Allergy Unknown Hives Verified 01/10/23 10:18 Home Medications Medication Instructions Recorded Confirmed Type norgestrel 0.3 mg-ethinyl 1 tablet PO DAILY 12/31/22 01/10/23 History estradiol 30 mcg tablet (Low-Ogestrel (28)) Patient hx anesthesia problems: none Family hx anesthesia problems: none Results Review: All pre-operative results and documents have been reviewed as part of the pre-operative evaluation. [facility] Past Medical History Medical History Anxiety disorder, unspecified History of blood transfusion Surgical History Surgical History H/O dilation and curettage S/P wisdom tooth extraction Family History Family History Mother Patient's mother is in good health Father Patient's father is in good health Sibling Patient's brother is in good health Patient's sister is in good health Grandparent Family history of lung cancer Carcinoma of colon Hypertension Other Cerebrovascular accident Social History Social History Smoking status: Never smoker Second hand tobacco smoke exposure: No Alcohol intake: current Drinks per week: 5 Substance use: never Substance use type: does not use Lack of Transportation: No Lack of Food: Never True Current Housing: I Have Housing Concerned About Future Housing: No Difficulty Paying Gas/Electric Bills: No Difficulty Paying for Meds: No Currently Unemployed: No Education: Bachelor's Degree Difficulty w/ Childcare or Family Care: No Living arrangements: with family 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 Informed Consent: The patient's anesthetic plan and its attendant risks and benefits were discussed with the patient/family/POA. Questions were solicited and answers provided to the satisfaction of the patient/family/POA.
--- NOTE | 2023-01-10 11:35 | WPDHPUPDATE1 ---
History and Physical Update Update Date/Time: 01/10/23 11:35 History and Physical has been reviewed, including an updated exam of the patient. There are NO changes in the patient's condition. Risks, benefits, and alternatives have been discussed and questions answered. Patient agrees to proceed with procedure.
[2023-01-10] MEDS: ceFAZolin 2 GM/D5W 50 ML 2 GM/50 ML BAG IVPB (11:49)
[2023-01-10] MEDS: LIDO 1%/EPINEPHRINE 1:100,000 20 ML VIAL INFILTRATE (12:05)
[2023-01-10 12:34] VITALS: BP 106/71; PULSE 105; RESP 12; O2SAT 100
--- NOTE | 2023-01-10 12:37 | W.PM.PROC2 ---
Procedure Note - Detailed Date of Procedure 01/10/23 Pre-op Diagnosis Left Axillary Mass Post-op Diagnosis Same Procedure Performed Excisional biopsy of left axillary mass Surgeon Jona Henderson, DO Anesthesia MAC and Local (1% lidocaine with epinephrine) Indications This is a 32-year-old woman who presented with axillary swelling and discomfort that she had noticed over the past several years. She has had a prior ultrasound which only shows evidence of a slightly enlarged lymph node but is otherwise normal. She continues to have swelling in this region. Discussions were made with the patient that this could possibly be normal axillary contents or possibly axillary breast tissue. Less likely causes could be lymphadenopathy or other neoplasm. Discussions were made with the patient about treatment options and decision was made to proceed with excisional biopsy of the left axillary mass. Findings Excisional biopsy of left axillary mass was performed. Patient had the area of axillary swelling marked in preop. Careful dissection was made down through the clavipectoral fascia and into the deep axillary contents. The area of swelling was excised and sent to the lab for pathology. Most of the tissue appeared to be normal axillary contents. No other significant abnormalities were noted. Description of Procedure Procedure as well as risks, benefits, and alternatives were discussed with the patient. Written consent was obtained and placed in chart prior to procedure. Patient was brought back to surgical suite. She was placed supine on operating table. Time-out was done to confirm patient and procedure. IV sedation was then administered by the anesthesia department. Her left axillary area was prepped and draped in sterile fashion using chlorhexidine prep. 1% lidocaine with epinephrine was infiltrated locally around the left axillary mass. A 4 cm oblique incision was then made over the mass using a 15 blade scalpel. Electrocautery was used for hemostasis and for careful dissection through the subcutaneous tissue. The clavipectoral fascia was incised with electrocautery the axillary contents were carefully dissected free and excised. After excising the area swelling, no other abnormalities were noted. Hemostasis appeared adequate. The deep dermis and subcutaneous tissue was reapproximated using 3-0 Vicryl simple interrupted sutures. The skin was then approximated using 4-0 Monocryl running subcuticular suture. Exofin glue was then applied on top. Estimated Blood Loss 5 Pathology Yes (Left axillary mass) Complications No immediate complications Condition Stable Disposition Same day [facility] Billing Surgery - Charge Forward: Surgery Billing
[2023-01-10] MEDS: MIDAZOLAM HCL (*CRX) 2 MG/2 ML VIAL IV PUSH (12:48)
[2023-01-10 13:00] VITALS: BP 105/43; PULSE 61; RESP 15; O2SAT 99
[2023-01-10 13:30] VITALS: BP 95/50; PULSE 85; RESP 16
[2023-01-10 13:50] VITALS: BP 100/50; PULSE 80; RESP 16
== END 2023-01-10 13:57 | disposition home or self-care (01) ==
PROVIDERS: PCP Internal Medicine; Visit Provider Surgery
PROC: (CPT 19120; principal; 2023-01-10 12:00)
DX: R22.32 Localized swelling, mass and lump, left upper limb (principal)
CPT/HCPCS: 19120; 88304; A9270; J0131; J0690; J1100; J1885; J2250; J2405; J2704; J3010; J7120

== ENCOUNTER → 2023-03-28 11:37 | Outpatient (CLI) | payer OTHER, SELFPAY ==
--- NOTE | ~2023-03-28 | US_ITS ---
EXAMINATION:US venous doppler LE RT INDICATION:Right leg pain TECHNIQUE: Multiple grayscale, color flow and Doppler images of the right lower extremity deep venous systems were obtained and reviewed. COMPARISON:No prior studies for comparison. FINDINGS: The common femoral, superficial femoral and popliteal veins demonstrate normal respiratory variation, augmentation and compressibility. Color flow is also seen within the posterior tibial, pe roneal, greater saphenous and profunda veins. There is a Puentes's cyst right popliteal fossa measuring 4.3 cm maximum dimension. IMPRESSION: 1: No lower extremity deep venous thrombosis. Reviewed, dictated and finalized at location []
== END ==
PROVIDERS: PCP Nurse Practitioner; Visit Provider Nurse Practitioner Family
DX: R22.41 Localized swelling, mass and lump, right lower limb (principal)
CPT/HCPCS: 93971

== ENCOUNTER 2023-10-07 12:36 | Emergency (ER) | payer OTHER, SELFPAY ==
--- NOTE | ~2023-10-07 | XR_ITS ---
EXAMINATION: XR chest 2V DATE: 10/07/2023 13:19 INDICATION: Cough. TECHNIQUE: Frontal and lateral views of the chest were obtained. COMPARISON: Chest 2 views 07/30/2020, chest CT 07/30/2020 FINDINGS: There are airspace opacities in left lower lobe, consistent with pneumonia. No pleural effu yolanda or pneumothorax. The heart size is normal. IMPRESSION: 1. Left lower lobe pneumonia. 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
[2023-10-07 13:12] VITALS: BP 131/94; PULSE 120; RESP 16; TEMP 36.8; O2SAT 99
--- NOTE | 2023-10-07 13:38 | ED.URI ---
HPI - URI/Sore Throat General Chief Complaint: Upper Respiratory Infection Stated Complaint: Cough Time Seen by Provider: 10/07/23 13:41 Source: patient Mode of arrival: ambulatory Limitations: no limitations History of Present Illness HPI Narrative: Kenzie is a 33-year-old female patient presenting to the clinic today with complaints of cough and shortness of breath. She reports she was COVID positive 2 weeks ago. Is concerned about pneumonia. MD elicited complaint: cough, nasal congestion and other (Shortness of breath) Related Data Home Medications Medication Instructions Recorded Confirmed norgestrel 0.3 mg-ethinyl 1 tablet PO DAILY 12/31/22 09/22/23 estradiol 30 mcg tablet (Low-Ogestrel (28)) Allergies Allergy/AdvReac Type Severity Reaction Status Date / Time amoxicillin Allergy Mild Hives Verified 10/07/23 13:42 Penicillins Allergy Unknown Hives Verified 10/07/23 13:42 Review of Systems Review of Systems: Pertinent positives per HPI. Patient denies any fever, chills, rash, headache, visual changes, dizziness, chest pain, palpitations, nausea, vomiting, diarrhea, constipation, abdominal pain, or any urinary issues. [facility] Past Medical History Medical History Anxiety disorder, unspecified History of blood transfusion Surgical History Surgical History H/O dilation and curettage S/P biopsy excisional biopsy of left axillary mass 01/10/23 S/P wisdom tooth extraction Family History Family History Mother Patient's mother is in good health Father Patient's father is in good health Sibling Patient's brother is in good health Patient's sister is in good health Grandparent Family history of lung cancer Carcinoma of colon Hypertension Other Cerebrovascular accident Social History Social History Smoking status: Never smoker Second hand tobacco smoke exposure: No Alcohol intake: current Drinks per week: 5 Substance use: never Substance use type: does not use Lack of Transportation: No Lack of Food: Never True Current Housing: I Have Housing Concerned About Future Housing: No Difficulty Paying Gas/Electric Bills: No Difficulty Paying for Meds: No Currently Unemployed: No Education: Bachelor's Degree Difficulty w/ Childcare or Family Care: No Living arrangements: with family 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 There is no relevant family history pertinent to the patient complaint. Exam Narrative: General: Well-developed, well nourished, in no apparent distress Head: Normocephalic, atraumatic Eyes: Pupils equally round and reactive to light bilaterally, EOM intact, sclera and conjunctive clear, no discharge, lids normal Ears: TMs intact and clear, ear canals clear, no drainage, grossly hearing normal. Nose: Nares patent, no discharge, no inflammation, no sinus tenderness. Mouth: Oral pharynx without lesions or masses, good dentition, MMM. Neck: Supple, trachea midline, no enlargement of anterior or posterior cervical nodes, no thyroid masses or goiter palpable. Cardio: Regular rate and rhythm, s1 and s2 normal, no murmur appreciated. Resp: Crackles over the left lower lobe, no rhonchi, wheezing or rubs Course Course Emergency Course: Portions of this record may have been created with voice recognition software. Level of Care: Express Care Visit Vital Signs Vital signs: Vital Signs Temperature 36.8 C 10/07/23 13:12 Pulse Rate 120 H
== END 2023-10-07 13:44 | disposition home or self-care (01) ==
PROVIDERS: Emergency Provider Nurse Practitioner Family; PCP Nurse Practitioner Family
DX: J18.1 Lobar pneumonia, unspecified organism (principal)
CPT/HCPCS: 71046; 99213; G0463

== ENCOUNTER 2024-01-28 08:18 | Emergency (ER) | payer OTHER, SELFPAY ==
[2024-01-28 08:24] VITALS: BP 113/59; PULSE 76; RESP 16; TEMP 36.6; O2SAT 100
--- NOTE | 2024-01-28 08:50 | ED.URI ---
HPI - URI/Sore Throat General Chief Complaint: Upper Respiratory Infection Stated Complaint: Congestion/Cough/Eye Problem Time Seen by Provider: 01/28/24 08:45 Source: patient and RN notes reviewed Mode of arrival: ambulatory Limitations: no limitations History of Present Illness HPI Narrative: 33 year old female presents with concern for continuing sinus congestion, drainage, sinus pain, right eye irritation, drainage, redness. Reports she was treated for a sinus infection with doxycycline without much improvement. Reports she has had several week history of sinus pain, pressure, copious drainage. She reports she has also had pinkeye that she has failed treatment for, she reports she has not completed antibiotic course is as directed for various reasons. She denies vision changes. She reports she started taking Cindy and Sudafed couple days ago MD elicited complaint: nasal congestion, sinus pain and other (eye drainage) Related Data Home Medications Medication Instructions Recorded Confirmed norethindrone 1.5 mg-ethinyl 1 tablet PO DAILY 01/28/24 01/28/24 estradiol 30 mcg(21)/iron 75 mg(7) tablet (Iona Fe 1.5/30 (28)) Allergies Allergy/AdvReac Type Severity Reaction Status Date / Time amoxicillin Allergy Mild Hives Verified 01/28/24 08:38 Penicillins Allergy Unknown Hives Verified 01/28/24 08:38 Review of Systems Review of Systems: CONSTITUTIONAL: Denies malaise, chills, sweats, or fever. EYES: Denies visual changes. Reports right eye redness, irritation, crusty discharge. ENT: Reports rhinorrhea, congestion, sinus pain. Denies otalgia and sore throat. CARDIOVASCULAR: Denies chest pain, palpitations, or edema. RESPIRATORY: Reports cough. Denies dyspnea. GASTROINTESTINAL: Denies abdominal pain, nausea, vomiting, diarrhea SKIN: Denies rash or itching. MUSCULOSKELETAL: Denies myalgia. NEUROLOGIC: Denies headache. All systems reviewed & are unremarkable except as noted in HPI and below PMFSH Past Medical History Medical History Anxiety disorder, unspecified History of blood transfusion Surgical History Surgical History H/O dilation and curettage S/P biopsy excisional biopsy of left axillary mass 3/31/23 S/P wisdom tooth extraction Family History Family History Mother Patient's mother is in good health Father Patient's father is in good health Sibling Patient's brother is in good health Patient's sister is in good health Grandparent Family history of lung cancer Carcinoma of colon Hypertension Other Cerebrovascular accident Social History Social History Smoking status: Never smoker Second hand tobacco smoke exposure: No Alcohol intake: current Drinks per week: 5 Substance use: never Substance use type: does not use Lack of Transportation: No Lack of Food: Never True Current Housing: I Have Housing Concerned About Future Housing: No Difficulty Paying Gas/Electric Bills: No Difficulty Paying for Meds: No Currently Unemployed: No Education: Bachelor's Degree Difficulty w/ Childcare or Family Care: No Living arrangements: with family 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 There is no relevant family history pertinent to the presenting complaint Exam Narrative: GENERAL: Well-appearing, well-nourished, and in no acute distress. HEAD: Normocephalic EYES: PERRLA, right sclera and conjunctivae injected with green drainage noted ENT: Nares clear, turbinates edematous and erythematous, sinu
== END 2024-01-28 08:57 | disposition home or self-care (01) ==
PROVIDERS: Emergency Provider Nurse Practitioner
DX: J01.90 Acute sinusitis, unspecified (principal); H10.9 Unspecified conjunctivitis
CPT/HCPCS: 99213; G0463

== ENCOUNTER 2024-03-11 08:51 | Outpatient (CLI) | payer OTHER, SELFPAY ==
[2024-03-11 09:29] LABS: Basophils Percent Auto 0.4 % (0.2-1.2); Eosinophils Percent Auto 0.4 % (0-4.4); Hemoglobin 14.4 g/dL (12.0-15.0); Immature Granulocyte Absolute 0.02 K/mm3 (0.00-0.031); Immature Granulocyte Percent A 0.4 % (0-0.5); Lymphocytes Absolute Auto 0.93 K/mm3 (0.9-3.2); Lymphocytes Percent Auto 18.7 % (18.3-44.2); Mean Corpuscular HGB Conc 32.7 g/dl (32-36); Mean Corpuscular Hemoglobin 31.4 pg (26-34); Mean Corpuscular Volume 96.1 fl (80-100); Mean Platelet Volume 9.7 fl (7.4-10.4); Monocytes Absolute Auto 0.3 K/mm3 (0.1-0.6); Monocytes Percent Auto 6.6 % (2.6-8.5); Neutrophils Absolute Auto 3.7 K/mm3 (1.3-6.7); Neutrophils Percent Auto 73.5 % (45.5-73.1); Platelet Count Result 254 k/mm3 (150-375); Red Blood Count 4.58 M/mm3 (4.2-5.4); Red Cell Distribution Width 11.9 % (11.5-14.5)
[2024-03-11 09:47] LABS: Iron 66 ug/dL (37-170)
[2024-03-11 09:50] LABS: Alanine Aminotransferase 16 U/L (6-35); Albumin Level 4.3 g/dL (3.5-5.1); Alkaline Phosphatase 54 U/L (38-126); Anion Gap 4 mmol/L (4-12); Aspartate Amino Transferase 20 U/L (14-36); Bilirubin,Total 0.5 mg/dL (0.2-1.3); Blood Urea Nitrogen 8 mg/dL (7-17); Calcium 8.7 mg/dL (8.4-10.2); Carbon Dioxide 25 mmol/L (22-30); Chloride 109 mmol/L (98-107); Estimated Glomerular Filt Rate > 60; Glucose 104 mg/dL (65-110); Potassium 4.6 mmol/L (3.4-5.0); Sodium 138 mmol/L (137-145)
[2024-03-11 09:56] LABS: Percent Iron Saturation 19 % (20-50)
[2024-03-11 22:53] LABS: Vitamin D 25 Hydroxy 33.8 ng/mL
== END 2024-03-11 08:52 | disposition home or self-care (01) ==
LOC: ANHLAB 08:52
PROVIDERS: Visit Provider Nurse Practitioner Family
DX: Z13.228 Encounter for screening for other metabolic disorders (principal); R20.2 Paresthesia of skin; F41.1 Generalized anxiety disorder; R07.9 Chest pain, unspecified; R19.4 Change in bowel habit; Z13.0 Encounter for screening for diseases of the blood and blood-forming organs and certain disorders involving the immune mechanism; Z13.21 Encounter for screening for nutritional disorder
CPT/HCPCS: 36415; 80053; 82306; 82607; 82728; 83540; 83550; 85025

== ENCOUNTER 2024-08-08 15:39 | Emergency (ER) | payer OTHER, SELFPAY ==
[2024-08-08 15:52] VITALS: BP 142/64; PULSE 136; RESP 18; TEMP 38.8; O2SAT 99
[2024-08-08 16:36] LABS: EDSTREPNEGPOS1 Positive (Negative)
--- NOTE | 2024-08-08 17:07 | ED_ITS ---
HPI - General Adult General Chief complaint: Upper Respiratory Infection Stated complaint: Sore Throat/Body Aches/Ear Pain Source: patient Mode of arrival: ambulatory Limitations: no limitations History of Present Illness HPI narrative: Pt presents for evaluation of sore throat since yesterday. She also reports fever, fatigue, generalized body aches, nausea and vomiting. No diarrhea, cough, shortness of breath. Her recently had similar symptoms. She has not taken any medication to assist with her symptoms. She does not smoke. Related Data Home Medications Medication Instructions Recorded Confirmed norethindrone 1.5 mg-ethinyl 1 tablet PO DAILY 01/28/24 04/20/24 estradiol 30 mcg(21)/iron 75 mg(7) tablet (Iona Fe 1.5/30 (28)) Allergies Allergy/AdvReac Type Severity Reaction Status Date / Time amoxicillin Allergy Mild Hives Verified 08/08/24 15:46 Penicillins Allergy Unknown Hives Verified 08/08/24 15:46 Review of Systems Review of Systems: CONSTITUTIONAL: Reports fever and fatigue. Denies chills, or sweats. EYES: Denies visual changes, redness, or discharge. ENT: Denies rhinorrhea, congestion, sore throat, or otalgia. CARDIOVASCULAR: Denies chest pain, palpitations, or edema. RESPIRATORY: Denies cough or dyspnea. GASTROINTESTINAL: Reports nausea and vomiting. Denies abdominal pain and diarrhea. GENITOURINARY: Denies dysuria or hematuria. SKIN: Denies rash or itching. MUSCULOSKELETAL: Reports generalized body aches NEUROLOGIC: Denies headache, numbness, dizziness, or weakness. PSYCHIATRIC: Denies anxiety or depression. [facility] Past Medical History Medical History Anxiety disorder, unspecified History of blood transfusion Surgical History Surgical History H/O dilation and curettage S/P biopsy excisional biopsy of left axillary mass 01/10/23 S/P wisdom tooth extraction Family History Family History Mother Patient's mother is in good health Father Patient's father is in good health Sibling Patient's brother is in good health Patient's sister is in good health Grandparent Family history of lung cancer Carcinoma of colon Hypertension Other Cerebrovascular accident Social History Social History Smoking status: Never smoker Second hand tobacco smoke exposure: No Alcohol intake: current Drinks per week: 5 Substance use: never Substance use type: does not use Lack of Transportation: No Lack of Food: Never True Current Housing: I Have Housing Concerned About Future Housing: No Difficulty Paying Gas/Electric Bills: No Difficulty Paying for Meds: No Currently Unemployed: No Education: Bachelor's Degree Difficulty w/ Childcare or Family Care: No Living arrangements: with family 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 HEAD: Normocephalic, atraumatic. EYES: PERRLA and EOMI. ENT: Nares clear, no rhinorrhea or epistaxis. Mucous membranes moist. There is bilateral tonsillar enlargement, right greater than the left. There is no uvular deviation. There is white exudate in posterior pharynx. Bilateral TMs pearly moreau nonbulging NECK: Supple. No adenopathy or masses. No carotid bruits or JVD CHEST: Clear to auscultation. No respiratory distress. No wheezes rales or rhonchi HEART: Regular rate and rhythm. No murmur heard. Normal peripheral pulses. ABDOMEN: Soft, nontender, nondistended, normal active bowel sounds. EXTREMITIES: Normal range of motion. No edema. SKIN: Warm, dry, no rash. NEURO: No focal deficits. Alert and oriented x3. PSYCH: Normal mood and affect. Course Course Emergency Course: This is a 34-year-old female who presented for evaluation of sore throat. Her rapid strep was positive. I am concerned that she may have peritonsillar abscess on the right. I recommended she go to the hospital for CT imaging. She was agreeable. [facility] as her facility of choice. I contacted [facility] and spoke with physician Dr. Bello. He accepted pt to the Dept there. She has no signs of airway compromise. Pt transferred via private vehicle. Level of Care: Express Care Visit Vital Signs Vital signs: Vital Signs Temperature 38.8 C H 08/08/24 15:52 Pulse Rate 136 H 08/08/24 15:52 Respiratory Rate 18 08/08/24 15:52 Blood Pressure 142/64 H 08/08/24 15:52 Pulse Oximetry 99 08/08/24 15:52 Oxygen Delivery Room Air 08/08/24 15:52 Temperature 38.8 C H 08/08/24 15:52 Pulse Rate 136 H 08/08/24 15:52 Respiratory Rate 18 08/08/24 15:52 Blood Pressure 142/64 H 08/08/24 15:52 Pulse Oximetry 99 08/08/24 15:52 Oxygen Delivery Room Air 08/08/24 15:52 Medical Decision Making Vital Signs Vital Signs: Vital Signs Temperature 38.8 C H 08/08/24 15:52 Pulse Rate 136 H 08/08/24 15:52 Respiratory Rate 18 08/08/24 15:52 Blood Pressure 142/64 H 08/08/24 15:52 Pulse Oximetry 99 08/08/24 15:52 Oxygen Delivery Room Air 08/08/24 15:52 Temperature 38.8 C H 08/08/24 15:52 Pulse Rate 136 H 08/08/24 15:52 Respiratory Rate 18 08/08/24 15:52 Blood Pressure 142/64 H 08/08/24 15:52 Pulse Oximetry 99 08/08/24 15:52 Oxygen Delivery Room Air 08/08/24 15:52 Lab Data Labs: Lab Results 08/08/24 Range/Units 16:33 POC Grp A Strep Screen Positive (Negative) Discharge Plan Discharge Clinical Impression: Strep throat Patient Disposition: Acute Care Hospital Condition: Stable Instructions: Strep Throat (ED) Patient Language: Peruvian Prescriptions: New cefdinir 300 mg capsule 300 mg PO Q12H Qty: 20 0RF No Action norethindrone-e.estradiol-iron [Iona Fe 1.5/30 (28)] 1.5 mg-30 mcg (21)/75 mg (7) tablet 1 tablet PO DAILY mecobalamin (vitamin B12) 1,000 mcg tablet,disintegrating 1,000 mcg sublingual DAILY Qty: 90 1RF Hold Instructions: .Provider Order Rx Instructions: place tablet under tongue and allow to dissolve for at least30 secs before swallowing ferrous sulfate 325 mg (65 mg iron) tablet 325 mg PO DAILY Qty: 90 1RF Hold Instructions: .Provider Order Follow-up/Referrals: Cassandra Caballero APRN [Primary Care Provider] - Time of Disposition: 16:54
== END 2024-08-08 16:25 | disposition short-term general hospital (02) ==
LOC: EXPBETH 15:41
PROVIDERS: Emergency Provider Nurse Practitioner; PCP Nurse Practitioner Family
DX: J02.0 Streptococcal pharyngitis (principal)
CPT/HCPCS: 87880; 99212; G0463

== ENCOUNTER 2024-08-08 17:30 | Emergency (ER) | payer OTHER, SELFPAY ==
[2024-08-08 17:51] VITALS: BP 116/86; PULSE 130; RESP 18; TEMP 36.8; O2SAT 99
--- NOTE | 2024-08-08 18:10 | ED_ITS ---
HPI - Dental/Oral General Chief complaint: Dental/Oral Stated complaint: potential peritonsillar abcess/ strep+ Time Seen by Provider: 08/08/24 18:02 Source: patient Mode of arrival: ambulatory Limitations: no limitations History of Present Illness HPI Narrative: This is a 34-year-old female who presents to the ED with chief complaint of sore throat and possible peritonsillar abscess. She was sent here from urgent care today. Their concern for right-sided PREPRESS PROOFER. Patient states that she tested positive for strep throat today. She states that she has been running a fever with T-max of 102? F. denies nausea, vomiting, drooling, trismus, muffled voice. Related Data Home Medications Medication Instructions Recorded Confirmed norethindrone 1.5 mg-ethinyl 1 tablet PO DAILY 01/28/24 04/20/24 estradiol 30 mcg(21)/iron 75 mg(7) tablet (Iona Fe 1.5/30 (28)) Allergies Allergy/AdvReac Type Severity Reaction Status Date / Time amoxicillin Allergy Mild Hives Verified 08/08/24 17:33 Penicillins Allergy Unknown Hives Verified 08/08/24 17:33 Review of Systems Review of Systems: All systems as dictated in HPI [facility] Past Medical History Medical History Anxiety disorder, unspecified History of blood transfusion Surgical History Surgical History H/O dilation and curettage S/P biopsy excisional biopsy of left axillary mass 01/10/23 S/P wisdom tooth extraction Family History Family History Mother Patient's mother is in good health Father Patient's father is in good health Sibling Patient's brother is in good health Patient's sister is in good health Grandparent Family history of lung cancer Carcinoma of colon Hypertension Other Cerebrovascular accident Social History Social History Smoking status: Never smoker Second hand tobacco smoke exposure: No Alcohol intake: current Drinks per week: 5 Substance use: never Substance use type: does not use Lack of Transportation: No Lack of Food: Never True Current Housing: I Have Housing Concerned About Future Housing: No Difficulty Paying Gas/Electric Bills: No Difficulty Paying for Meds: No Currently Unemployed: No Education: Bachelor's Degree Difficulty w/ Childcare or Family Care: No Living arrangements: with family 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 HEAD: Normocephalic, atraumatic. EYES: PERRLA and EOMI. ENT: 3+ tonsillar swelling on the right and 1+ tonsillar swelling on the left. Exudate seen throughout the posterior pharynx. Uvula is still midline. No muffled voice or drooling. Nares clear, no rhinorrhea or epistaxis. Mucous membranes moist. NECK: Supple. No adenopathy or masses. CHEST: No respiratory distress. Clear to auscultation. No wheezes rales or rhonchi HEART: Regular rate and rhythm. No murmur heard. Normal peripheral pulses. ABDOMEN: Soft, nontender, nondistended, normal active bowel sounds. MSK: Normal range of motion. No edema. SKIN: Warm, dry, no rash. NEURO: Alert and oriented x4. No focal deficits. PSYCH: Normal mood and affect. Course Vital Signs Vital signs: Vital Signs Temperature 98.3 F 08/08/24 17:51 Pulse Rate 130 H 08/08/24 17:51 Respiratory Rate 18 08/08/24 17:51 Blood Pressure 116/86 08/08/24 17:51 Pulse Oximetry 99 08/08/24 17:51 Oxygen Delivery Room Air 08/08/24 17:51 Temperature 98.3 F 08/08/24 17:51 Pulse Rate 130 H 08/08/24 17:51 Respiratory Rate 18 08/08/24 17:51 Blood Pressure 116/86 08/08/24 17:51 Pulse Oximetry 99 08/08/24 17:51 Oxygen Delivery Room Air 08/08/24 17:51 MDM - Dental/Oral MDM Narrative Medical decision making narrative: This is a 34 yo female presents to the ED for chief complaint of sore throat with strep diagnosis today are urgent care. She was sent here due to possible PREPRESS PROOFER. Vitals are normal. Exam shows significantly swollen tonsils, worse on the right. Uvula remains midline but there are exudates throughout the throat[place] [address]. Did not need advanced imaging today. She does not have a muffled voice and is able to tolerate secretions. Would not doubt if she is starting to develop a PREPRESS PROOFER on the right side but she is able to tolerate p.o.. She was given Toradol, dexamethasone and started on IV clinda here. She already has prescription for cefdinir and I encouraged her to continue taking this as prescribed. Patient will be discharged in stable condition. Supportive measures discussed and return precautions given. Patient is understanding and agreeable with plan for discharge with PCP follow-up. Discharge Plan Discharge Clinical Impression: Acute bacterial tonsillitis Patient Disposition: Left Against Medical Advice Condition: Stable Additional Instructions: Your exam and workup today are reassuring. Please take antibiotics as prescribed. Use Tylenol and ibuprofen every 4-6 hours as needed for pain control. If you have significant difficulty with swallowing, uncontrollable pain or fevers please return to the ER for further evaluation. Prescriptions: No Action norethindrone-e.estradiol-iron [Iona Fe 1.5/30 (28)] 1.5 mg-30 mcg (21)/75 mg (7) tablet 1 tablet PO DAILY cefdinir 300 mg capsule 300 mg PO Q12H Qty: 20 0RF mecobalamin (vitamin B12) 1,000 mcg tablet,disintegrating 1,000 mcg sublingual DAILY Qty: 90 1RF Hold Instructions: .Provider Order Rx Instructions: place tablet under tongue and allow to dissolve for at least30 secs before swallowing ferrous sulfate 325 mg (65 mg iron) tablet 325 mg PO DAILY Qty: 90 1RF Hold Instructions: .Provider Order Follow-up/Referrals: Cassandra Caballero APRN [Primary Care Provider] - Stand Alone Forms: Work/School Release IP Time of Disposition: 19:11
[2024-08-08] MEDS: dexAMETHasone SOD PHOS INJ 10 MG/ML 1 ML VIAL IV PUSH (18:43)
[2024-08-08] MEDS: KETOROLAC 15 MG/ML VIAL (*BKC) IV PUSH (18:43)
[2024-08-08] MEDS: ONDANSETRON INJ 4 MG/2 ML VIAL IV PUSH (18:43)
[2024-08-08] MEDS: SODIUM CHLORIDE 0.9% IV 1,000 ML 999 ML IV CONT (18:44)
[2024-08-08 19:02] LABS: Alanine Aminotransferase 19 U/L (6-35); Albumin Level 4.7 g/dL (3.5-5.1); Alkaline Phosphatase 63 U/L (38-126); Anion Gap 10 mmol/L (4-12); Aspartate Amino Transferase 22 U/L (14-36); Bilirubin,Total 0.5 mg/dL (0.2-1.3); Blood Urea Nitrogen 8 mg/dL (7-17); Calcium 9.1 mg/dL (8.4-10.2); Carbon Dioxide 23 mmol/L (22-30); Chloride 101 mmol/L (98-107); Estimated CRCL calculation 106 ml/min; Estimated Glomerular Filt Rate > 60; Glucose 121 mg/dL (65-110); Potassium 3.5 mmol/L (3.4-5.0); Sodium 134 mmol/L (137-145)
[2024-08-08 19:07] LABS: Basophils Percent Auto 0.3 % (0.2-1.2); Hematocrit 42.3 % (37.0-47.0); Hemoglobin 14.6 g/dL (12.0-15.0); Immature Granulocyte Absolute 0.07 K/mm3 (0.00-0.031); Immature Granulocyte Percent A 0.5 % (0-0.5); Lymphocytes Percent Auto 4.1 % (18.3-44.2); Mean Corpuscular HGB Conc 34.5 g/dl (32-36); Mean Corpuscular Hemoglobin 32.1 pg (26-34); Mean Platelet Volume 10.3 fl (7.4-10.4); Monocytes Absolute Auto 0.6 K/mm3 (0.1-0.6); Monocytes Percent Auto 3.8 % (2.6-8.5); Neutrophils Absolute Auto 13.2 K/mm3 (1.3-6.7); Neutrophils Percent Auto 91.3 % (45.5-73.1); Platelet Count Result 238 k/mm3 (150-375); Red Blood Count 4.55 M/mm3 (4.2-5.4); Red Cell Distribution Width 12.2 % (11.5-14.5); White Blood Count 14.5 K/mm3 (4.5-10.0)
[2024-08-08] MEDS: CLINDAMYCIN 450 MG in DEXTROSE 5% IN WATER 50 ML 106 MG IVPB (19:16)
[2024-08-08 19:45] VITALS: BP 135/78; PULSE 78; RESP 19; TEMP 37.2; O2SAT 98
== END 2024-08-08 20:46 | disposition left against medical advice (07) ==
PROVIDERS: Emergency Provider Physician Assistant; PCP Nurse Practitioner Family
DX: J03.80 Acute tonsillitis due to other specified organisms (principal); B96.89 Other specified bacterial agents as the cause of diseases classified elsewhere
CPT/HCPCS: 36415; 80053; 85025; 96361; 96365; 96375; 99284; J1100; J1885; J2405; J7030

== ENCOUNTER 2024-09-01 13:15 | Emergency (ER) | payer OTHER, SELFPAY ==
[2024-09-01 13:20] VITALS: BP 125/72; PULSE 90; RESP 16; TEMP 36.6; O2SAT 98
--- NOTE | 2024-09-01 13:31 | ED.URI ---
HPI - URI/Sore Throat General Chief Complaint: Upper Respiratory Infection Stated Complaint: throat/headache/matting eyes History of Present Illness HPI Narrative: Patient is a 34-year-old female, past medical history significant for recent strep infection at the end of July, diagnosis of peritonsillar abscess requiring Augmentin therapy with resolution of her symptoms, presents to [facility] with 1 week history of sinus congestion, focal to the left maxillary sinus, followed by increased pressure, nasal discharge and crusting of the left eye this morning. She denies associated fevers or chills. She has no sore throat or cough. She is concerned she is developing a sinus infection, prompting her visit. Her has recently been ill with similar symptoms 1 week ago. She denies any additional known sick contacts. She is not . Related Data Home Medications Medication Instructions Recorded Confirmed norethindrone 1.5 mg-ethinyl 1 tablet PO DAILY 01/28/24 04/20/24 estradiol 30 mcg(21)/iron 75 mg(7) tablet (Iona Fe 1.5/30 (28)) Allergies Allergy/AdvReac Type Severity Reaction Status Date / Time amoxicillin Allergy Mild Hives Verified 08/08/24 17:33 Penicillins Allergy Unknown Hives Verified 08/08/24 17:33 Review of Systems ENT: Comments: Refer to [facility] Past Medical History Medical History Anxiety disorder, unspecified History of blood transfusion Surgical History Surgical History H/O dilation and curettage S/P biopsy excisional biopsy of left axillary mass 01/10/23 S/P wisdom tooth extraction Family History Family History Mother Patient's mother is in good health Father Patient's father is in good health Sibling Patient's brother is in good health Patient's sister is in good health Grandparent Family history of lung cancer Carcinoma of colon Hypertension Other Cerebrovascular accident Social History Social History Smoking status: Never smoker Second hand tobacco smoke exposure: No Alcohol intake: current Drinks per week: 5 Substance use: never Substance use type: does not use Lack of Transportation: No Lack of Food: Never True Current Housing: I Have Housing Concerned About Future Housing: No Difficulty Paying Gas/Electric Bills: No Difficulty Paying for Meds: No Currently Unemployed: No Education: Bachelor's Degree Difficulty w/ Childcare or Family Care: No Living arrangements: with family 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 Gender identity (if verbalized by the patient): Female Spiritual care concerns: No Exam Const: General: healthy appearing, no acute distress and alert Nutritional Appearance: well nourished Orientation/consciousness: patient oriented x3 Limitations: no limitations HENMT: Head: normal to inspection Ears: external ears normal and TM's normal bilaterally Face and sinus: sinus tenderness ( left) ethmoid and maxillary Mouth: Yes Normal oral and palatal mucosa present and Yes lip normal Teeth and gingiva: dentition normal Throat: posterior oropharynx normal and uvula midline Eyes: Conjunctivae: conjunctivae normal Pupils: Equal, round and reactive pupils present EOM: EOMs intact bilaterally Neck: Neck: normal visual inspection, no lymphadenopathy and no meningeal signs Resp: Effort & Inspection: normal respiratory effort Auscultation: clear to auscultation bilaterally Cardio: Rate: regular rate Rhythm: regular rhythm Skin: General skin exam: normal color Rashes: no rashes Wounds: no wounds Neuro: General: patient oriented x3, moves all extremities, no meningeal signs, no focal motor deficits and CN's II-XI intact bilaterally Gait exam (Neuro): Normal gait present Extrem: General: normal to inspection Psych: Mental Status: mental status grossly normal Course Course Emergency Course: plan to treat empirically for likely postviral sinusitis, conjunctivitis. Doxycycline in lieu of Augmentin as she recently completed Augmentin therapy in the last 30 days. Will prescribe antibiotic eyedrops as well. She does not wear contact lenses, she will follow-up with her PCP for symptoms not improving in 3 days. Patient relies understanding she is agreeable to discharge plan of care. Level of Care: Express Care Visit ([id number]) Vital Signs Vital signs: Vital Signs Temperature 36.6 C 09/01/24 13:20 Pulse Rate 90 09/01/24 13:20 Respiratory Rate 16 09/01/24 13:20 Blood Pressure 125/72 09/01/24 13:20 Pulse Oximetry 98 09/01/24 13:20 Oxygen Delivery Room Air 09/01/24 13:20 Temperature 36.6 C 09/01/24 13:20 Pulse Rate 90 09/01/24 13:20 Respiratory Rate 16 09/01/24 13:20 Blood Pressure 125/72 09/01/24 13:20 Pulse Oximetry 98 09/01/24 13:20 Oxygen Delivery Room Air 09/01/24 13:20 Discharge Plan Discharge Clinical Impression: Acute maxillary sinusitis Qualifiers: Recurrence: non-recurrent Qualified Code(s): J01.00 - Acute maxillary sinusitis, unspecified Conjunctivitis Qualifiers: Conjunctivitis type: acute Acute conjunctivitis type: bacterial Laterality: left Qualified Code(s): H10.32 - Unspecified acute conjunctivitis, left eye Patient Disposition: Home, Self-Care Condition: Stable Instructions: Antibiotic Form, Sinusitis (ED), Conjunctivitis (ED) Additional Instructions: START AND COMPLETE ORAL ANTIBIOTICS DIRECTED. WASH HANDS WELL BEFORE AND AFTER INSTILLING ANTIBIOTIC EYE DROPS, FOLLOW UP WITH HER PRIMARY CARE PROVIDER IN 3-5 DAYS IF YOUR SYMPTOMS NOT IMPROVING SOONER IF YOUR CONDITION WORSENS IN ANY WAY. Prescriptions: New doxycycline hyclate 100 mg capsule 100 mg PO BID 10 Days Qty: 20 0RF neomycin-polymyxin B-dexameth [Maxitrol] 3.5mg/mL-10,000 unit/mL-0.1 % drops,suspension 1 drp LEFT EYE Q6H 5 Days Qty: 5 0RF No Action norethindrone-e.estradiol-iron [Iona Fe 1.5/30 (28)] 1.5 mg-30 mcg (21)/75 mg (7) tablet 1 tablet PO DAILY mecobalamin (vitamin B12) 1,000 mcg tablet,disintegrating 1,000 mcg sublingual DAILY Qty: 90 1RF Hold Instructions: .Provider Order Rx Instructions: place tablet under tongue and allow to dissolve for at least30 secs before swallowing ferrous sulfate 325 mg (65 mg iron) tablet 325 mg PO DAILY Qty: 90 1RF Hold Instructions: .Provider Order Follow-up/Referrals: Cassandra Caballero APRN [Primary Care Provider] - Time of Disposition: 13:37
== END 2024-09-01 13:40 | disposition home or self-care (01) ==
PROVIDERS: Emergency Provider Nurse Practitioner Family; PCP Nurse Practitioner Family
DX: J01.00 Acute maxillary sinusitis, unspecified (principal); H10.32 Unspecified acute conjunctivitis, left eye
CPT/HCPCS: 99213; G0463

== ENCOUNTER 2024-09-13 09:53 | Emergency (ER) | payer OTHER, SELFPAY ==
[2024-09-13 10:01] VITALS: BP 124/83; PULSE 128; RESP 18; TEMP 38; O2SAT 97
--- NOTE | 2024-09-13 10:39 | ED.URI ---
HPI - URI/Sore Throat General Chief Complaint: Upper Respiratory Infection Stated Complaint: SOB/Fever/Bodyaches Time Seen by Provider: 09/13/24 10:19 Source: patient, RN notes reviewed and old records reviewed Mode of arrival: ambulatory Limitations: no limitations History of Present Illness HPI Narrative: Patient presents today complaining of a one-week history of dry cough with body aches, chills, fever up to 102, sweats since yesterday. Patient also feels that she can not take a deep breath. She has tried Mucinex and ibuprofen without relief. She was treated approximately 5 weeks ago with Augmentin for peritonsillar abscess. Related Data Home Medications Medication Instructions Recorded Confirmed norethindrone 1.5 mg-ethinyl 1 tablet PO DAILY 01/28/24 09/13/24 estradiol 30 mcg(21)/iron 75 mg(7) tablet (Iona Fe 1.5/30 (28)) Allergies Allergy/AdvReac Type Severity Reaction Status Date / Time amoxicillin Allergy Mild Hives Verified 09/13/24 10:06 Penicillins Allergy Unknown Hives Verified 09/13/24 10:06 Review of Systems Review of Systems: CONSTITUTIONAL: + body aches, fever, chills, sweats EYES: Denies visual changes, redness, or discharge. ENT: Denies rhinorrhea, congestion, sore throat, or otalgia. CARDIOVASCULAR: Denies chest pain, palpitations, or edema. RESPIRATORY: Denies dyspnea.+ cough GASTROINTESTINAL: Denies abdominal pain, nausea, vomiting, or diarrhea. GENITOURINARY: Denies dysuria or hematuria. SKIN: Denies rash, itching, or wounds. MUSCULOSKELETAL: Denies back pain, joint pain, or myalgia. NEUROLOGIC: Denies headache, numbness, tingling, or weakness. PSYCH: Denies depression or anxiety. [facility] Past Medical History Medical History Anxiety disorder, unspecified History of blood transfusion Surgical History Surgical History H/O dilation and curettage S/P biopsy excisional biopsy of left axillary mass 01/10/23 S/P wisdom tooth extraction Family History Family History Mother Patient's mother is in good health Father Patient's father is in good health Sibling Patient's brother is in good health Patient's sister is in good health Grandparent Family history of lung cancer Carcinoma of colon Hypertension Other Cerebrovascular accident Social History Social History Smoking status: Never smoker Second hand tobacco smoke exposure: No Alcohol intake: current Drinks per week: 5 Substance use: never Substance use type: does not use Lack of Transportation: No Lack of Food: Never True Current Housing: I Have Housing Concerned About Future Housing: No Difficulty Paying Gas/Electric Bills: No Difficulty Paying for Meds: No Currently Unemployed: No Education: Bachelor's Degree Difficulty w/ Childcare or Family Care: No Living arrangements: with family 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 Please see nursing chart for further information. There is no relevant family history pertinent to the presenting complaint Exam Narrative: GENERAL: Mildly ill-appearing, well-nourished, and in no acute distress. HEAD: Normocephalic, atraumatic. EYES: EOMI. No redness or drainage. Conjunctivae normal. ENT: Mucous membranes pink and moist. Nares congested. No rhinorrhea. TMs normal bilaterally. Throat normal. Uvula midline. NECK: Normal AROM. Supple. No lymphadenopathy. CHEST: No respiratory distress. Clear to auscultation. HEART: Regular rate and rhythm. No murmur appreciated. EXTREMITIES: Normal range of motion. No edema. SKIN: Warm, dry, no rash. Capillary refill normal. Normal skin turgor. NEURO: No focal deficits. Alert and oriented x3. Gait steady. PSYCH: Normal affect. No signs of depression or anxiety. Course Course Level of Care: Express Care Visit Vital Signs Vital signs: Vital Signs Temperature 100.4 F H 09/13/24 10:01 Pulse Rate 128 H 09/13/24 10:01 Respiratory Rate 18 09/13/24 10:01 Blood Pressure 124/83 09/13/24 10:01 Pulse Oximetry 97 09/13/24 10:01 Oxygen Delivery Room Air 09/13/24 10:01 Temperature 100.4 F H 09/13/24 10:01 Pulse Rate 128 H 09/13/24 10:01 Respiratory Rate 18 09/13/24 10:01 Blood Pressure 124/83 09/13/24 10:01 Pulse Oximetry 97 09/13/24 10:01 Oxygen Delivery Room Air 09/13/24 10:01 Reviewed MDM - URI/Sore Throat MDM Narrative Medical decision making narrative: At this time, x-ray is not available at this facility. Patient will be treated presumptively for pneumonia based on her course of illness, new fever, and exam. Five days of Augmentin and 5 days of azithromycin will be sent over to pharmacy as well as an albuterol inhaler. Patient agrees with plan. Anticipatory guidance given. Differential Diagnosis Differential diagnosis: Likely upper respiratory infection, viral infection, bronchitis and other (Pneumonia) Critical Care Time Critical Care Time Critical Care Time: No Discharge Plan Discharge Clinical Impression: Acute lower respiratory infection Patient Disposition: Home, Self-Care Condition: Stable Instructions: Community Acquired Pneumonia (DC) Additional Instructions: Please take all medications as prescribed. Continue Mucinex and ibuprofen at home if needed. Follow-up with your PCP in 3 days if symptoms are not improving. Go to the ER immediately if symptoms worsen. Your blood pressure was elevated above 120/80 today at Urgent Care. This puts you above the threshold for follow up. Please schedule a followup visit with your personal physician as soon as possible, for further evaluation and treatment. Even blood pressure exceeding 120/80 may indicate pre-hypertension. Prescriptions: New azithromycin 250 mg tablet 250 mg PO DAILY Qty: 6 0RF Rx Instructions: take 500 mg today (day 1), then 250 mg daily on days 2-5. albuterol sulfate 90 mcg/actuation HFA aerosol inhaler 2 inh inhalation Q4-6H PRN (Reason: shortness of breath or wheezing) Qty: 8.5 0RF amoxicillin-pot clavulanate 875-125 mg tablet 1 tablet PO Q12H 5 Days Qty: 10 0RF (DME) BreatheRite MDI Spacer Spacer See Rx Instructions .ROUTE .MEDSUPPLY Qty: 1 0RF Rx Instructions: As directed No Action norethindrone-e.estradiol-iron [Iona Fe 1.5/30 (28)] 1.5 mg-30 mcg (21)/75 mg (7) tablet 1 tablet PO DAILY mecobalamin (vitamin B12) 1,000 mcg tablet,disintegrating 1,000 mcg sublingual DAILY Qty: 90 1RF Hold Instructions: .Provider Order Rx Instructions: place tablet under tongue and allow to dissolve for at least30 secs before swallowing ferrous sulfate 325 mg (65 mg iron) tablet 325 mg PO DAILY Qty: 90 1RF Hold Instructions: .Provider Order Follow-up/Referrals: Cassandra Caballero APRN [Primary Care Provider] - Time of Disposition: 10:44
== END 2024-09-13 10:53 | disposition home or self-care (01) ==
PROVIDERS: Emergency Provider Nurse Practitioner; PCP Nurse Practitioner Family
DX: J22 Unspecified acute lower respiratory infection (principal)
CPT/HCPCS: 99213; G0463

== ENCOUNTER 2024-09-21 13:59 | Outpatient (CLI) | payer OTHER, SELFPAY ==
--- NOTE | ~2024-09-21 | XR_ITS ---
EXAMINATION: XR chest 2V Exam Date/Time: 09/21/2024 14:18 RADIATION ONCOLOGIST HISTORY: R05.9 - Cough, unspecified, sob x 1.5 weeks Comparison: 10/07/2023. RESULT: Lines, tubes, and devices: None. Lungs and pleura: Segmental left lower lobe consolidation. Cardiomediastinal silhouette: Stable. Other: No acute osseous or upper abdominal finding. IMPRESSION: Findings concerning for left lower lobe pneumonia. Reviewed, dictated and finalized at location K. ATION ONCOLOGIST
== END 2024-09-21 14:00 | disposition home or self-care (01) ==
PROVIDERS: PCP Nurse Practitioner Family; Visit Provider Nurse Practitioner Family
DX: J18.9 Pneumonia, unspecified organism (principal)
CPT/HCPCS: 71046

== ENCOUNTER 2025-03-03 00:35 | Day surgery (SDC) | payer OTHER, SELFPAY ==
--- NOTE | 2024-11-09 11:07 | SUR.PREOP ---
Pt left message that she needs to reschedule her procedure. I called patient and left a voicemail requesting a return call.
[2025-02-25 10:58] VITALS: BMI 28.2
--- OUTSIDE RECORDS SUMMARY | 2025-03-03 00:38 | XMS_ITS | Clinical Summary ---
Author Organization [facility] Address [address] [place] [address] Care Team Providers Care Direct Marketing Manager Name Role Phone Unavailable Primary Care Provider Unavailabl e Source Comments [facility],non-owned Affiliates and Associated Physician Practices is amultiple site organization consisting of ambulatory clinics and hospital sitesin [place], [place], [place] and [place]. This disclosure is being madepursuant to the Care Everywhere program and may not contain all information available regarding this patient. Last updated 18.[facility] [employer] Social History Tobacco Use Types Packs/Day Years Used Date Smoking Tobacco: Never Assessed Comments Unknown Sex and Gender Information Value Date Recorded Sex Assigned at Not on file Legal Sex Female 2:32 PM CDT Gender Identity Not on file Sexual Orientation Not on file Plan of Treatment Health Maintenance Due Date Last Done Comments PAP SMEAR 1990 HIV SCREENING 2005 HEPATITIS C SCREENING 03/30/2008 DTAP/TDAP/TD VACCINES (1 - Tdap) 2009 HEPATITIS B VACCINE (1 of 3 - 19+ 3-dose series) 2009 COVID-19 VACCINE ( - 2023-2 5 season) 2024 DEPRESSION SCREENING 10/13/2024 INFLUENZA VACCINE (Season Ended) 2025 ZOSTER VACCINE (1 of 2) 2040 HIB VACCINE Aged Out No longer eligi ble based on patient's age to complete this topic HPV VACCINE Aged Out No longer eligi ble based on patient's age to complete this topic MENINGOCOCCAL (Group B) VACC INE SHARED DECISION-MAKING Aged Out No longer eligibl e based on patient's age to complete this topic MENINGOCOCCAL GROUPS A/C/Y/W VACCINE Aged Out No longer eligible b ased on patient's age to complete this topic PNEUMOCOCCAL VACCINE Aged Out No long er eligible based on patient's age to complete this topic [place] [address] [facility]
[2025-03-03 10:01] VITALS: BP 118/47; PULSE 82; RESP 18; TEMP 36.1; O2SAT 100
[2025-03-03] MEDS: LACTATED RINGERS 1,000 ML 150 ML IV CONT (10:15)
--- NOTE | 2025-03-03 10:19 | P.PNAN_ITS ---
Anes - Initial Pre Proc Eval Procedure: Operation Date: 03/03/25 11:00 Proposed Procedures p Colonoscopy - Walter Tong MD Date/Time: 03/03/25 10:19 Surgeon: Walter Tong MD Pre Op Diagnosis: Family HX of neoplasm, Patient Data Age: 34 Gender: F Height: 1.57 m Weight: 68.2 kg Last Vital Signs Temp 36.1 C L 03/03/25 10:01 Pulse 82 03/03/25 10:01 Resp 18 03/03/25 10:01 BP 118/47 L 03/03/25 10:01 Pulse Ox 100 03/03/25 10:01 O2 Del Method Room Air 03/03/25 10:01 Allergies Allergy/AdvReac Type Severity Reaction Status Date / Time No Known Allergies Allergy Verified 03/03/25 09:53 Home Medications ?Medication ?Instructions ?Recorded ?Confirmed ?Type norethindrone 1.5 mg-ethinyl 1 tablet PO DAILY 01/28/24 02/25/25 History estradiol 30 mcg(21)/iron 75 mg(7) tablet (Iona Fe 1.5/30 (28)) ferrous sulfate 325 mg (65 mg 325 mg PO DAILY #90 tabs 03/12/24 02/25/25 Rx iron) tablet mecobalamin (vitamin B12) 1,000 1,000 mcg sublingual DAILY #90 tabs 03/12/24 02/25/25 Rx mcg disintegrating tablet,sublingual inhalational spacing device #1 ea 09/13/24 09/22/24 Rx (BreatheRite MDI Spacer) linaclotide 145 mcg capsule 145 mcg PO DAILY #30 caps 09/27/24 02/25/25 Rx (Linzess) Patient hx anesthesia problems: none Family hx anesthesia problems: none Results Review: All pre-operative results and documents have been reviewed as part of the pre- operative evaluation. [facility] Past Medical History Medical History (Updated 03/02/25 @ 14:31 by Giles Garcia DO) PONV (postoperative nausea and vomiting) Anemia History of blood transfusion Anxiety disorder, unspecified Surgical History Surgical History S/P biopsy excisional biopsy of left axillary mass 01/10/23 S/P wisdom tooth extraction H/O dilation and curettage Family History Family History Mother Patient's mother is in good health Father Patient's father is in good health Sibling Patient's brother is in good health Patient's sister is in good health Grandparent Family history of lung cancer Carcinoma of colon Hypertension Other Cerebrovascular accident Social History Social History Smoking status: Never smoker Second hand tobacco smoke exposure: No Alcohol intake: current Drinks per week: 4 Substance use: never Substance use type: does not use Lack of Transportation: No Lack of Food: Never True Current Housing: I Have Housing Concerned About Future Housing: No Difficulty Paying Gas/Electric Bills: No Difficulty Paying for Meds: No Currently Unemployed: No Education: Bachelor's Degree Difficulty w/ Childcare or Family Care: No Living arrangements: with family 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 Informed Consent: The patient's anesthetic plan and its attendant risks and benefits were discussed with the patient/family/POA. Questions were solicited and answers provided to the satisfaction of the patient/family/POA.
--- NOTE | 2025-03-03 10:50 | PM.HPGS ---
History of Present Illness History of Present Illness Consent: Risks, benefits, and alternatives have been discussed and questions answered. Patient agrees to proceed with procedure. Chief complaint: Family HX of neoplasm, Narrative: Kenzie Wynne is a 34 year old female here for first colonoscopy, chronic constipation, also grandparent with colon cancer Review of Systems Review of Systems: All systems reviewed & are unremarkable except as noted in HPI and below PMFSH Past Medical History Medical History (Updated 03/02/25 @ 14:31 by Giles Garcia DO) PONV (postoperative nausea and vomiting) Anemia History of blood transfusion Anxiety disorder, unspecified Surgical History Surgical History S/P biopsy excisional biopsy of left axillary mass 01/10/23 S/P wisdom tooth extraction H/O dilation and curettage Family History Family History Mother Patient's mother is in good health Father Patient's father is in good health Sibling Patient's brother is in good health Patient's sister is in good health Grandparent Family history of lung cancer Carcinoma of colon Hypertension Other Cerebrovascular accident Social History Social History Smoking status: Never smoker Second hand tobacco smoke exposure: No Alcohol intake: current Drinks per week: 4 Substance use: never Substance use type: does not use Lack of Transportation: No Lack of Food: Never True Current Housing: I Have Housing Concerned About Future Housing: No Difficulty Paying Gas/Electric Bills: No Difficulty Paying for Meds: No Currently Unemployed: No Education: Bachelor's Degree Difficulty w/ Childcare or Family Care: No Living arrangements: with family 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 Gender identity (if verbalized by the patient): Female Spiritual care concerns: No Meds Home Medications and Allergies Home Medications ?Medication ?Instructions ?Recorded ?Confirmed ?Type norethindrone 1.5 mg-ethinyl 1 tablet PO DAILY 01/28/24 02/25/25 History estradiol 30 mcg(21)/iron 75 mg(7) tablet (Iona Zavala 1.5/30 (28)) ferrous sulfate 325 mg (65 mg 325 mg PO DAILY #90 tabs 03/12/24 02/25/25 Rx iron) tablet mecobalamin (vitamin B12) 1,000 1,000 mcg sublingual DAILY #90 tabs 03/12/24 02/25/25 Rx mcg disintegrating tablet,sublingual inhalational spacing device #1 ea 09/13/24 09/22/24 Rx (BreatheRite MDI Spacer) linaclotide 145 mcg capsule 145 mcg PO DAILY #30 caps 09/27/24 02/25/25 Rx (Linzess) Allergies Allergy/AdvReac Type Severity Reaction Status Date / Time No Known Allergies Allergy Verified 03/03/25 09:53 Vital Signs Vital Signs - 24 hr 03/03/25 10:01 Temperature 97 F L Pulse Rate 82 Respiratory Rate 18 Blood Pressure 118/47 L Pulse Oximetry 100 Oxygen Delivery Room Air Exam Const: General: comfortable and no acute distress HENMT: Face/Nose/Sinus: Normal nares present Eyes: General: appearance normal, both eyes and all related structures Neck: Neck: no JVD Resp: Auscultation: clear to auscultation bilaterally Cardio: Rate: regular rate Rhythm: regular rhythm GI: Inspection: non-distended GI Palp: Yes Soft to palpation Skin: General skin exam: normal color Neuro: General: gait normal Speech: normal speech Extrem: General: normal to inspection Psych: Mental Status: mental status grossly normal Assessment and Plan Assessment and plan (1) Chronic constipation: Code(s): K59.09 - Other constipation Status: Acute Assessment and Plan: colonoscopy
[2025-03-03 11:08] VITALS: BP 83/56; PULSE 80; RESP 20; O2SAT 100
[2025-03-03 11:08] LABS: BEDSIDEPREGUCG Negative (Negative)
[2025-03-03 11:18] VITALS: BP 103/54; PULSE 82; RESP 18; O2SAT 100
[2025-03-03 11:28] VITALS: BP 107/65; PULSE 81; RESP 17; O2SAT 100
== END 2025-03-03 11:44 | disposition home or self-care (01) ==
PROVIDERS: PCP Nurse Practitioner Family; Referring Provider Nurse Practitioner Family; Visit Provider Internal Medicine Gastroenterology
PROC: 0DJD8ZZ Inspection of Lower Intestinal Tract, Via Natural or Artificial Opening Endoscopic (ICD-10-PCS; CPT 45378; principal; 2025-03-03 11:00)
DX: K59.09 Other constipation (principal)
CPT/HCPCS: 45378; J2003; J2704; J7120

== ENCOUNTER 2025-08-15 08:44 | Emergency (ER) | payer OTHER, SELFPAY ==
--- NOTE | 2025-08-15 08:46 | ED_ITS ---
HPI - URI/Sore Throat General Chief Complaint: Upper Respiratory Infection Stated Complaint: sinus problems, headache Time Seen by Provider: 08/15/25 09:16 Source: patient, RN notes reviewed and old records reviewed Mode of arrival: ambulatory Limitations: no limitations History of Present Illness HPI Narrative: 35-year-old female presents to the [facility] with concerns of intermittent URI symptoms for the last several weeks. States that she thought it was 1st allergies. Five days ago patient states that the pressure increased in her face, postnasal drainage. Has taken Tylenol. Treatments prior to arrival: cold medicine Related Data Home Medications ?Medication ?Instructions ?Recorded ?Confirmed ?Last Taken ?Type norethindrone 1.5 mg-ethinyl 1 tablet PO DAILY 4 03/25/25 Unknown History estradiol 30 mcg(21)/iron 75 mg(7) tablet (Iona Fe 1.5/30 (28)) Held on 08/01/25. Instructions: No longer a patient on IMM Allergies Allergy/AdvReac Type Severity Reaction Status Date / Time amoxicillin Allergy Unknown Verified 08/15/25 09:05 Penicillins Allergy Unknown Verified 08/15/25 09:05 Review of Systems Review of Systems: All systems reviewed & are unremarkable except as noted in HPI and below Constitutional: Constitutional: Reports no additional constitutional complaints ENT: Reports as per HPI, Reports post nasal drip and Reports sinus pain Cardiovascular: Cardiovascular: Reports no additional cardiovascular complaints, Denies chest pain and Denies dyspnea Respiratory: Respiratory: Reports no additional respiratory complaints, Denies chest congestion, Denies cough and Denies dyspnea Musculoskeletal: Musculoskeletal: Reports no additional musculoskeletal complaints Integumentary/Breasts: Skin/Breast: Reports system reviewed and no additional complaints, except as docu PMFSH Past Medical History Medical History Cough Pneumonia PONV (postoperative nausea and vomiting) Anemia History of blood transfusion Anxiety disorder, unspecified Surgical History Surgical History S/P biopsy excisional biopsy of left axillary mass 01/10/23 S/P wisdom tooth extraction H/O dilation and curettage Family History Family History Mother Patient's mother is in good health Father Patient's father is in good health Sibling Patient's brother is in good health Patient's sister is in good health Grandparent Family history of lung cancer Carcinoma of colon Hypertension Other Cerebrovascular accident Social History Social History Smoking status: Never smoker Second hand tobacco smoke exposure: No Alcohol intake: current Drinks per week: 4 Substance use: never Substance use type: does not use Lack of Transportation: No Lack of Food: Never True Current Housing: I Have Housing Concerned About Future Housing: No Difficulty Paying Gas/Electric Bills: No Difficulty Paying for Meds: No Currently Unemployed: No Education: Bachelor's Degree Difficulty w/ Childcare or Family Care: No Living arrangements: with family 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 There is no relevant family history pertinent to the patient complaint. Exam Const: General: cooperative, healthy appearing, comfortable, no acute distress, well developed, alert and well nourished Nutritional Appearance: well nourished Orientation/consciousness: patient oriented x3 Limitations: no limitations HENMT: Head: normal to inspection Ears: hearing grossly normal bilaterally, external ears normal, TM's normal bilaterally, EAC's normal, mastoids normal and no periauricular adenopathy Face and sinus: face symmetric and sinus tenderness frontal and maxillary Mouth: Yes Normal oral and palatal mucosa present, Yes lip normal, Yes tongue normal and Yes moist mucous membranes Throat: posterior oropharynx normal, uvula midline, postnasal drainage and no uvular edema Eyes: General: appearance normal, both eyes and all related structures Alignment and Position: alignment normal Neck: Neck: normal visual inspection, full ROM, no lymphadenopathy and no meningeal signs Chest: Chest palpation & inspection: normal inspection of the chest Resp: Effort & Inspection: normal respiratory effort and able to speak in complete sentences Auscultation: clear to auscultation bilaterally, no crackles, no rales, no rhonchi and no wheezes Cardio: Rate: regular rate Skin: General skin exam: normal color and no rashes or lesions noted Neuro: General: patient oriented x3, gait normal, moves all extremities and no meningeal signs Cognition (Neuro): normal cognition Speech: normal speech Gait exam (Neuro): Normal gait present Extrem: General: normal to inspection, full ROM, capillary refill normal and normal gait Psych: Appearance: grossly normal and well kempt Mental Status: mental status grossly normal Speech and movement: Normal speech and movement present and Clear speech present Affect: normal affect Attitude: cooperative Course Course Level of Care: Express Care Visit Vital Signs Vital signs: Vital Signs Temperature 98.1 F 08/15/25 08:50 Pulse Rate 91 08/15/25 08:50 Respiratory Rate 14 08/15/25 08:50 Blood Pressure 107/80 08/15/25 08:50 Pulse Oximetry 100 08/15/25 08:50 Oxygen Delivery Room Air 08/15/25 08:50 Temperature 98.1 F 08/15/25 08:50 Pulse Rate 91 08/15/25 08:50 Respiratory Rate 14 08/15/25 08:50 Blood Pressure 107/80 08/15/25 08:50 Pulse Oximetry 100 08/15/25 08:50 Oxygen Delivery Room Air 08/15/25 08:50 Reviewed MDM - URI/Sore Throat MDM Narrative Medical decision making narrative: Patient sitting in exam room. Patient is nontoxic, vitals stable. Patient presents with increasing symptoms over the last 5 days after having an upper respiratory infection for her several weeks. Denies fevers. No testing indicated discussed ewxi-ind-mzzmllb treatment as well as will prescribe doxycycline. Patient with penicillin allergy Discharge instructions reviewed with patient, as well as provided in writing per nursing staff. The instructions also include specific and strict return/GO TO THE ER as well as f/u information. All questions have been answered, and the patient deny any further questions with discharge and discharge plan. Some parts of this dictation were generated by voice recognition software and may contain typographical and/or grammatical inaccuracies. Differential Diagnosis Differential diagnosis: Likely upper respiratory infection, otitis media, sinusitis, viral infection, bronchitis, influenza and pharyngitis Critical Care Time Critical Care Time Critical Care Time: No Discharge Plan Discharge Clinical Impression: Sinusitis Patient Disposition: Home Condition: Stable Instructions: Antibiotic Form, Sinusitis (ED) Additional Instructions: It is very important to treat your symptoms. Drink plenty of water, Gatorade, Pedialyte, ice pops or Jell-O. -Alternate Tylenol and Motrin per package directions for fever or pain. You can alternate every 4 hours -Antihistamine medication such as Zyrtec/Claritin/Cindy during the day can help improve symptoms. -doing daily nasal irrigations can help relieve pressure your sinuses. Things like a Neti pot -Use Flonase twice a day for 5 days then daily to help reduce the inflammation and dry up your sinuses. -You can also use Mucinex. Be sure to drink plenty of water with this medicati on at least 8 ounces with every dose and it is important to drink 8 to 10 glasses of water per day. Water is a natural decongestant -Eat and drink things that are easy to swallow, like tea or soup, or popsicles. -Oral rinses such as: Salt water gargles and/or may use topical anesthetic (eg. Chloraseptic spray) or lozenges to relieve dryness or throat pain). -Frequent hand washing or hand showroom salesperson is one of the best ways to prevent spread of infection. -Using a vaporizer or humidifier at night will also help thin secretions and help with coughing up phlegm. -Follow up with primary care provider in 7-10 days if condition is not improving - For new or worsening symptoms go directly to the nearest ER Patient Language: Somali Prescriptions: New doxycycline monohydrate 100 mg tablet 100 mg PO BID Qty: 14 0RF fluticasone propionate [Flonase Allergy Relief] 50 mcg/actuation spray,suspension 2 spray intranasal DAILY Qty: 16 0RF Rx Instructions: administer into each nostril No Action norethindrone-e.estradiol-iron [Iona Zavala 1.5/30 (28)] 1.5 mg-30 mcg (21)/75 mg (7) tablet 1 tablet PO DAILY (DME) BreatheRite MDI Spacer Spacer See Rx Instructions .ROUTE .MEDSUPPLY Qty: 1 0RF Rx Instructions: As directed Linzess 145 mcg capsule 145 mcg PO DAILY Qty: 30 2RF mecobalamin (vitamin B12) 1,000 mcg tablet,disintegrating 1,000 mcg sublingual DAILY Qty: 90 1RF Rx Instructions: place tablet under tongue and allow to dissolve for at least30 secs before swallowing ferrous sulfate 325 mg (65 mg iron) tablet 325 mg PO DAILY Qty: 90 1RF Follow-up/Referrals: Cassandra Caballero APRN [Primary Care Provider, Internal Medicine] - 1 Week Clinical Impression: Sinusitis Stand Alone Forms: Work/School Release IP Time of Disposition: 09:34
[2025-08-15 08:50] VITALS: BP 107/80; PULSE 91; RESP 14; TEMP 36.7; O2SAT 100
--- OUTSIDE RECORDS SUMMARY | 2025-08-15 09:00 | XMS_ITS | Clinical Summary ---
Author Organization [facility] Address [address] 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 This disclosure is being madepursuant to the Care Everywhere program and may not contain all information available regarding this patient. Last updated 18.[facility] [employer] Social History Tobacco Use Types Packs/Day Years Used Date Smoking Tobacco: Never Assessed Comments Unknown Sex and Gender Information Value Date Recorded Sex Assigned at Not on file Legal Sex Female 2:32 PM CDT Gender Identity Not on file Sexual Orientation Not on file Plan of Treatment Health Maintenance Due Date Last Done Comments HIV SCREENING 2005 HEPATITIS C SCREENING 03/30/2008 DTAP/TDAP/TD VACCINES (1 - Tdap) 2009 HEPATITIS B VACCINE (1 of 3 - 19+ 3-dose series) 2009 PAP SMEAR 2011 HPV VACCINE (1 - 3-dose SCDM series) 2017 DEPRESSION SCREENING 10/13/2024 COVID-19 VACCINE (1 - 2023-2 5 season) 2025 INFLUENZA VACCINE (#1) 2025 ZOSTER VACCINE (1 of 2) 2040 [...] patient's age to complete this topic Insurance [facility] [employer]
== END 2025-08-15 09:49 | disposition home or self-care (01) ==
PROVIDERS: Emergency Provider Nurse Practitioner; PCP Nurse Practitioner Family
DX: J32.9 Chronic sinusitis, unspecified (principal); D64.9 Anemia, unspecified
CPT/HCPCS: 99213; G0463